=== PATIENT | male | born 1980 | race Caucasian/White ===

== ENCOUNTER 2022-06-17 14:11 | Inpatient (IN) | payer OTHER, MEDICAID, SELFPAY ==
[2022-06-17 14:12] VITALS: BP 151/98; PULSE 114; RESP 18; TEMP 36.4; O2SAT 96; BMI 31.5
--- NOTE | 2022-06-17 15:19 | EDS_ITS ---
HPI History of Present Illness Chief Complaint: Substance Abuse Detail of Chief Complaint: EtOH intoxication Informant: patient Narrative Narrative: Patient request detox from alcohol. Patient states he has been drinking since the age of 21 or before. His drink of choice is 4 Annada's. He had 2-1/2 of these today. He has been through formal detox program in the past, most recently 2 years ago. He states he started drinking again immediately upon leaving the program. He does not know of any withdrawal seizures in the past. [facility] Medical History (Updated 06/17/22 @ 15:[address] Mary Hazel MD) Asthma Home Medications aripiprazole 5 mg tablet (Abilify) 5 mg PO QHS 06/17/22 [History Last Taken Unknown] buspirone 15 mg tablet 15 mg PO BID 06/17/22 [History Last Taken Unknown] folic acid 1 mg tablet 1 mg PO DAILY 06/17/22 [History Last Taken Unknown] omeprazole 20 mg capsule,delayed release 20 mg PO DAILY 06/17/22 [History Last Taken Unknown] thiamine HCl (vitamin B1) 100 mg tablet 100 mg PO DAILY 06/17/22 [History Last Taken Unknown] trazodone 100 mg tablet 100 mg PO QHS 06/17/22 [History Last Taken Unknown] venlafaxine 75 mg capsule,extended release 24 hr 75 mg PO DAILY 06/17/22 [History Last Taken Unknown] Allergy/AdvReac Type Severity Reaction Status Date / Time azithromycin Allergy Anaphylaxis Verified 06/17/22 14:15 Social History (Updated 06/17/22 @ 15:[address] Mary Hazel MD) Smoking Status: Current every day smoker tobacco type: cigarettes alcohol intake: current alcohol intake frequency: 3 or more drinks per day ROS ROS ED Constitutional Constitutional ED: Denies chills or fever(s) Eyes Eyes: Denies change in vision or discharge from eye(s) ENT ENT ED: Denies discharge from eye(s), rhinorrhea or sore throat Cardiovascular Cardiovascular: Denies chest pain or palpitations Respiratory/Chest Respiratory/Chest: Denies cough or dyspnea Gastrointestinal Gastrointestinal: Denies abdominal pain, diarrhea, nausea or vomiting Genitourinary Genitourinary ED: Denies difficulty urinating or dysuria Musculoskeletal Musculoskeletal: Denies back pain or extremity pain Integumentary Denies Abrasions or rash Neurologic Neurologic: Denies headache(s) or weakness Psychiatric Psychiatric: Reports anxiety Endocrine Endocrinology: Denies polydipsia or polyuria Allergic/Immunologic Allergic/Immunologic ED: Denies lip swelling or urticaria EXAM Physical Exam Const Vital Signs: 06/17/22 14:12 Temperature 97.5 F L Temperature Source Temporal Pulse Rate 114 H Respiratory Rate 18 Blood Pressure 151/98 H Blood Pressure Mean 115 Pulse Ox 96 Oxygen Delivery Method Room Air Positive well nourished and well developed General Appearance ED: well developed HEENT Reports normocephalic and head/scalp atraumatic Eyes PERRL and EOMs intact bilaterally Neck supple Chest Wall inspection of chest normal and palpation of chest normal Resp normal respiratory effort and clear to auscultation bilaterally Cardio regular rhythm Rate: tachycardic GI normal to inspection, nondistended, normoactive bowel sounds Palpation: soft Extremity normal to inspection Neuro oriented x3 and no sensory deficits noted Sensorium / Orientation: alert Motor Exam: strength 5/5 throughout Psych Mood & Affect: anxious and tearful Skin no rashes or lesions noted MDM MDM MDM Narrative Medical decision making narrative: Lab work for addiction medicine obtained. Patient given a dose of Ativan. I will speak with hospitalist regarding admission. Lab Data Labs: Laboratory Results - last 24 hr 06/17/22 06/17/22 06/17/22 15:36 15:36 15:36 WBC 9.4 RBC 5.05 Hgb 17.0 H Hct 46.7 MCV 92.5 MCH 33.7 H MCHC 36.4 H RDW Std Deviation 49.4 H RDW Coeff of [place] 14.6 Plt Count 271 MPV 9.8 Immature Gran % (Auto) 0.600 Neut % (Auto) 61.0 Lymph % (Auto) 27.9 [place] % (Auto) 9.3 Eos % (Auto) 0.3 Baso % (Auto) 0.9 Absolute Neuts (auto) 5.7 Absolute Lymphs (auto) 2.62 Nucleated RBC % 0 Sodium 139 Potassium 2.9 L Chloride 96 L Carbon Dioxide 27.0 Anion Gap 16 H BUN 3 L Creatinine 0.98 Estim Creat Clear Calc 104.58 Est GFR (MDRD) Af Amer 108 Est GFR (MDRD) Non-Af 89 BUN/Creatinine Ratio 3.1 L Glucose 133 H Calcium 8.8 Total Bilirubin 1.20 H Direct Bilirubin 0.55 H AST 196 H ALT 113 H Alkaline Phosphatase 133 H Total Protein 8.1 Albumin 3.2 Globulin 4.9 H Ur Drug Screen Comment Treatment and Re-Evaluation Narrative: CBC reveals hemoglobin concentrated at 17.0. Chemistry studies significant for potassium of 2.9. This is replaced orally. Renal function is normal. LFTs are elevated including an AST of 196, ALT of 113, alk phos of 133. I do not have any prior values available for comparison. Discharge Plan Dx/Rx/DC Orders Clinical Impression: Alcoholism, Desire for detoxification Disposition Disposition: Acute Care Hospital [facility]
[2022-06-17] MEDS: LORazepam 2 MG/ML Syringe 1 MG IV (15:36)
[2022-06-17 15:47] LABS: Absolute Lymphocyte Count 2.62 X10^3/uL (0.83-4.51); Absolute Neutrophil Count 5.7 X10^3/uL (2.0-7.7); Basophil# 0.08 X10^3/uL; Basophil% 0.9 % (0-1); Eosinophil# 0.03 X10^3/uL; Eosinophils% 0.3 % (0-5); Hematocrit 46.7 % (40-54); Lymphocyte # 2.62 X10^3/ul (0.83-4.51); Lymphocyte % 27.9 % (19-41); Mean Corp Hgb Conc 36.4 g/dL (32-36); Mean Corpuscular Hgb 33.7 pg (27.0-32.0); Mean Corpuscular Volume 92.5 fL (80-94); Mean Platelet Vol. 9.8 fl (6.2-12.0); Monocyte# 0.87 X10^3/uL; Monocyte% 9.3 % (0-10); NRBC Flagged by Analyzer 0 % (0-5); Neutrophil # 5.74 X10^3/uL (2.7-7.7); Platelet Count 271 K/mm3 (150-450); RBC Distribution Width CV 14.6 % (11.6-14.6); RBC Distribution Width SD 49.4 fl (35.1-43.9); Red Blood Count 5.05 M/mm3 (4.6-6.2); White Blood Count 9.4 K/mm3 (4.4-11.0)
[2022-06-17 16:05] LABS: AST(SGOT) 196 U/L (15-37); Alanine Aminotransfer ALT/SGPT 113 U/L (16-61); Albumin, Serum 3.2 g/dL (3.2-5.0); Alkaline Phosphatase 133 U/L (45-117); Anion Gap 16 (5-15); BUN 3 mg/dL (7-18); BUN/Creat Ratio 3.1 RATIO (10-20); Bilirubin, Direct 0.55 mg/dL (0.00-0.30); Calcium,Total 8.8 mg/dL (8.5-10.1); Chloride 96 mmol/L (98-107); Creatinine, Serum 0.98 mg/dL (0.70-1.30); EST Glomerular Filtration Rate 89 mL/min (>60); Est Glom Filt Rate - Afr Amer 108 mL/min (>60); Estimated Creatinine Clearance 104.58 ml/min; Globulin 4.9 g/dL (2.2-4.2); Glucose 133 mg/dL (74-106); Potassium 2.9 mmol/L (3.5-5.1); Protein, Total 8.1 g/dL (6.4-8.2); Sodium Level 139 mmol/L (136-145)
--- NOTE | 2022-06-17 16:17 | PCM.HP.STD ---
[facility] - [facility] General Date of Service: 06/17/22 Chief Complaint: Requesting alcohol withdrawal treatment HPI Narrative BEBA ANGELA, is a 42 M who presents seeking treatment for alcohol withdrawal. Patient drinks several 4 Locos per day. Last drink was about 2 to 3 hours prior to arrival. Since his last drink, the patient has been feeling anxious and tremulous. Patient wishing to move forward in regards to getting treatment for his alcohol problem. He has not been established with any program prior to his presentation. [facility] Medical History (Updated 06/17/22 @ 16:[address] Wilberto Cardenas DO) Anxiety Asthma HTN (hypertension) Home Medications aripiprazole 5 mg tablet (Abilify) 5 mg PO QHS 06/17/22 [History Last Taken Unknown] buspirone 15 mg tablet 15 mg PO BID 06/17/22 [History Last Taken Unknown] folic acid 1 mg tablet 1 mg PO DAILY 06/17/22 [History Last Taken Unknown] omeprazole 20 mg capsule,delayed release 20 mg PO DAILY 06/17/22 [History Last Taken Unknown] thiamine HCl (vitamin B1) 100 mg tablet 100 mg PO DAILY 06/17/22 [History Last Taken Unknown] trazodone 100 mg tablet 100 mg PO QHS 06/17/22 [History Last Taken Unknown] venlafaxine 75 mg capsule,extended release 24 hr 75 mg PO DAILY 06/17/22 [History Last Taken Unknown] Allergy/AdvReac Type Severity Reaction Status Date / Time azithromycin Allergy Anaphylaxis Verified 06/17/22 14:15 Family History (Updated 06/17/22 @ 16:[address] Wilberto Cardenas DO) Other Alcohol abuse Social History (Updated 06/17/22 @ 16:[address] Wilberto Cardenas DO) Smoking Status: Current every day smoker tobacco type: cigarettes alcohol intake: current alcohol intake frequency: 3 or more drinks per day substance use type: other details: Has used a synthetic marijuana, Delta, on occassion. LENARD Gan Does have occasional epigastric abdominal pain that may be due to a hernia. All review of systems were negative except as mentioned above in the history of present illness and the other review of systems. Vital Signs Vital Signs Vital Signs: 06/17/22 14:12 Temperature 36.4 C L Temperature Source Temporal Pulse Rate 114 H Respiratory Rate 18 Blood Pressure 151/98 H Blood Pressure Mean 115 Pulse Ox 96 Oxygen Delivery Method Room Air Weight Weight: 102.512 kg Body Mass Index (BMI) 31.5 Physical Exam Const alert and no apparent distress HEENT normocephalic and head/scalp atraumatic Resp normal respiratory effort, no retractions, no use of accessory muscles and clear to auscultation bilaterally Cardio regular rate, regular rhythm, S1 normal heart sound and S2 normal heart sound GI normal to inspection, nondistended, normoactive bowel sounds, soft to palpation, non-tender and non-distended Extremity normal to inspection Psych Mood & Affect: anxious Results Lab / Micro Data Result Diagrams: 06/17/22 15:36 06/17/22 15:36 Labs: Laboratory Results - last 24 hr 06/17/22 15:36: WBC 9.4, RBC 5.05, Hgb 17.0 H, Hct 46.7, MCV 92.5, MCH 33.7 H, MCHC 36.4 H, RDW Std Deviation 49.4 H, RDW Coeff of [place] 14.6, Plt Count 271, MPV 9.8, Immature Gran % (Auto) 0.600, Neut % (Auto) 61.0, Lymph % (Auto) 27.9, [place] % (Auto) 9.3, Eos % (Auto) 0.3, Baso % (Auto) 0.9, Absolute Neuts (auto) 5.7, Absolute Lymphs (auto) 2.62, Nucleated RBC % 0 06/17/22 15:36: Sodium 139, Potassium 2.9 L, Chloride 96 L, Carbon Dioxide 27.0, Anion Gap 16 H, BUN 3 L, Creatinine 0.98, Estim Creat Clear Calc 104.58, Est GFR (MDRD) Af Amer 108, Est GFR (MDRD) Non-Af 89, BUN/Creatinine Ratio 3.1 L, Glucose 133 H, Calcium 8.8, Total Bilirubin 1.20 H, Direct Bilirubin 0.55 H, AST 196 H, ALT 113 H, Alkaline Phosphatase 133 H, Total Protein 8.1, Albumin 3.2, Globulin 4.9 H 06/17/22 15:36: Ur Drug Screen Comment Assessment & Plan Assessment/Plan (1) Alcohol withdrawal: PLAN: Patient complains of anxiety as well as tremulousness currently. Will initiate phenobarbital taper plus an additional medications to help with [place] complaints with his withdrawal. (2) Hypokalemia: PLAN: Potassium was 2.9. Patient did receive replacement in the emergency room. Follow up in the morning but also check magnesium level and replace of low. (3) Transaminitis: PLAN: Likely secondary to alcohol abuse. Follow-up and monitor. If it worsens, consider ultrasound imaging. PLAN: Plan Chronic conditions Insomnia: Continue with trazodone Anxiety: Continue with his home meds Russ Pacheco venlafaopal VTE prophylaxis: Not indicated given low risk Charges/Coding Visit Charges Inpatient E&M: 58530 Init Hosp L2
[2022-06-17 16:22] LABS: Amphetamine Urine VISTA NEGATIVE (<1000 ng/mL); Barbiturate Urine VISTA NEGATIVE (< 200 ng/mL); Benzodiazepine Urine VISTA NEGATIVE (< 200 ng/mL); Cocaine Urine VISTA NEGATIVE (< 300 ng/mL); Ecstacy Urine VISTA NEGATIVE (< 500 ng/mL); Methadone Urine VISTA NEGATIVE (< 300 ng/mL); PCP Urine VISTA NEGATIVE (< 25 ng/mL); THC Urine VISTA POSITIVE (< 50 ng/mL); Vista UDS pH Range 6
[2022-06-17] MEDS: Potassium Chloride Oral Tablet 20 MEQ 40 MEQ PO (16:43)
--- NOTE | 2022-06-17 17:51 | ED.RN ---
dinner tray ordered for patient
[2022-06-17 17:52] VITALS: BP 147/92; PULSE 92; RESP 18; TEMP 36.7; O2SAT 97
[2022-06-17 18:39] VITALS: BMI 32.1
[2022-06-17 18:48] VITALS: BP 99/58; PULSE 100; RESP 18; TEMP 37.3; O2SAT 97
[2022-06-17] MEDS: Phenobarbital 32.4 MG Tablet 64.8 MG PO ×2 (19:33→23:50)
[2022-06-17] MEDS: Ondansetron 8 MG Tablet PO (19:33)
[2022-06-17] MEDS: busPIRone 15 MG TABLET PO (19:34)
[2022-06-17] MEDS: ARIPiprazole 5 MG Tablet PO (19:35)
[2022-06-17 20:05] VITALS: BP 104/62; PULSE 105; RESP 16; TEMP 37.4; O2SAT 95
[2022-06-17] MEDS: traZODone 100 MG Tablet PO (21:04)
[2022-06-17] MEDS: hydrOXYzine PAM 25 MG Capsule 50 MG PO (23:50)
[2022-06-18] VITALS (9 sets, daily range): BP systolic 124–153; BP diastolic 76–102; PULSE 76–110; RESP 16–18; TEMP 36.5–37.4; O2SAT 94–99
[2022-06-18] MEDS: Phenobarbital 32.4 MG Tablet 64.8 MG PO ×5 (03:44→20:09)
[2022-06-18 06:24] LABS: ALB/GLOB Ratio 0.7 RATIO (0.9-2.4); AST(SGOT) 147 U/L (15-37); Alanine Aminotransfer ALT/SGPT 88 U/L (16-61); Albumin, Serum 2.8 g/dL (3.2-5.0); Alkaline Phosphatase 112 U/L (45-117); Anion Gap 11 (5-15); BUN 6 mg/dL (7-18); BUN/Creat Ratio 5.4 RATIO (10-20); Calcium,Total 8.4 mg/dL (8.5-10.1); Chloride 96 mmol/L (98-107); Creatinine, Serum 1.12 mg/dL (0.70-1.30); EST Glomerular Filtration Rate 76 mL/min (>60); Est Glom Filt Rate - Afr Amer 93 mL/min (>60); Estimated Creatinine Clearance 88.72 ml/min; Globulin 4.2 g/dL (2.2-4.2); Glucose 124 mg/dL (74-106); Magnesium 1.7 mg/dL (1.6-2.6); Potassium 2.9 mmol/L (3.5-5.1); Sodium Level 137 mmol/L (136-145)
[2022-06-18 07:41] LABS: Magnesium 1.6 mg/dL (1.6-2.6); Phosphorus 2.7 mg/dL (2.5-4.9)
[2022-06-18] MEDS: Folic Acid 1 MG Tablet PO (08:11)
[2022-06-18] MEDS: 0.9% Saline Lock 10 ML Syringe IV ×3 (08:11→12:08)
[2022-06-18] MEDS: Dicyclomine 10 MG Capsule 20 MG PO (08:11)
[2022-06-18] MEDS: Thiamine Hydrochloride 100 MG Tablet PO (08:11)
[2022-06-18] MEDS: Potassium Chloride Oral Tablet 20 MEQ 60 MEQ PO (08:17)
--- NOTE | 2022-06-18 09:12 | PCM.PN.HOSP ---
Subjective Subjective Doing well, no issues overnight CIWA score of 1 Objective Data Objective Data Vital Signs: Vital Signs Temp Pulse Resp BP Pulse Ox O2 Del Method 97.8 F 93 16 151/96 H 97 Room Air 06/18/22 07:58 06/18/22 07:58 06/18/22 07:58 06/18/22 07:58 06/18/22 07:58 06/18/22 07:58 Oxygen Delivery Method Room Air Weight: 224 lb Body Mass Index (BMI) 32.1 Intake & Output: Intake and Output for Last 24 Hours 06/17/22 06/18/22 06/19/22 03:59 03:59 03:59 Intake Total 500 / 500 800 / 800 Balance 500 / 500 800 / 800 Lab / Micro Data Result Diagrams: 06/17/22 15:36 06/18/22 04:48 Labs: Laboratory Results - last 24 hr 06/17/22 15:36: WBC 9.4, RBC 5.05, Hgb 17.0 H, Hct 46.7, MCV 92.5, MCH 33.7 H, MCHC 36.4 H, RDW Std Deviation 49.4 H, RDW Coeff of [place] 14.6, Plt Count 271, MPV 9.8, Immature Gran % (Auto) 0.600, Neut % (Auto) 61.0, Lymph % (Auto) 27.9, [place] % (Auto) 9.3, Eos % (Auto) 0.3, Baso % (Auto) 0.9, Absolute Neuts (auto) 5.7, Absolute Lymphs (auto) 2.62, Nucleated RBC % 0 06/17/22 15:36: Sodium 139, Potassium 2.9 L, Chloride 96 L, Carbon Dioxide 27.0, Anion Gap 16 H, BUN 3 L, Creatinine 0.98, Estim Creat Clear Calc 104.58, Est GFR (MDRD) Af Amer 108, Est GFR (MDRD) Non-Af 89, BUN/Creatinine Ratio 3.1 L, Glucose 133 H, Calcium 8.8, Total Bilirubin 1.20 H, Direct Bilirubin 0.55 H, AST 196 H, ALT 113 H, Alkaline Phosphatase 133 H, Total Protein 8.1, Albumin 3.2, Globulin 4.9 H 06/17/22 15:36: Ethyl Alcohol 274.0 06/17/22 15:36: Urine Opiates Screen NEGATIVE, Urine Methadone Screen NEGATIVE, Ur Barbiturates Screen NEGATIVE, Ur Phencyclidine Scrn NEGATIVE, Ur Amphetamines Screen NEGATIVE, MDMA (Ecstasy) Screen NEGATIVE, U Benzodiazepines Scrn NEGATIVE, Urine Cocaine Screen NEGATIVE, U Cannabinoids Screen POSITIVE H, Ur Drug Screen Comment 06/18/22 04:48: Sodium 137, Potassium 2.9 L, Chloride 96 L, Carbon Dioxide 30.0, Anion Gap 11, BUN 6 L, Creatinine 1.12, Estim Creat Clear Calc 88.72, Est GFR (MDRD) Af Amer 93, Est GFR (MDRD) Non-Af 76, BUN/Creatinine Ratio 5.4 L, Glucose 124 H, Calcium 8.4 L, Magnesium 1.7, Total Bilirubin 1.50 H, AST 147 H, ALT 88 H, Alkaline Phosphatase 112, Total Protein 7.0, Albumin 2.8 L, Globulin 4.2, Albumin/Globulin Ratio 0.7 L 06/18/22 04:48: Phosphorus 2.7, Magnesium 1.6 Physical Exam Narrative General: Alert, Oriented x3, Cooperative, No apparent distress, diaphoretic HEENT: Atraumatic, PERRLA, EOMI, Normocephalic Oral: Moist Mucosa Neck: Supple, No JVD Lungs: Clear to auscultation, Normal air movement, No rhonchi, No wheeze, No rales Cardiovascular: Tachycardic, Regular Rhythm, Normal S1, Normal S2, No murmurs Abdomen: Soft, Non Tender, Non-Distended, No Hepato-splenomegaly Extremities: No edema, Capillary Refill Less than 3 Seconds Skin: No rashes, No breakdown Musculoskeletal: No Tenderness to Palpation of Joints or Extremities Neurological: Cranial nerves II-XII grossly intact, Motor Exam 5/5 strength throughout, Sensory exam intact to light touch and pain Psych/Mental Status: Flat affect, anxious Assessment & Plan Assessment/Plan (1) Alcohol withdrawal: (2) Hypokalemia: (3) Transaminitis: PLAN: Plan 1. Acute alcohol withdrawal/anxiety/depression/transaminitis ? Continue with the alcohol withdrawal protocol ? We will have him meet with 180 for outpatient follow-up ? We will continue with his mental health medications ? His transaminitis is likely related to his alcohol use recommend continued outpatient follow-up DVT: Ambulation Charges/Coding Visit Charges Inpatient E&M: 77557 Subs Hosp L2
[2022-06-18] MEDS: Pantoprazole Sodium 20 MG Tablet PO (09:53)
[2022-06-18] MEDS: Venlafaxine XR 75 MG Capsule PO (09:53)
[2022-06-18] MEDS: busPIRone 15 MG TABLET PO ×2 (09:53→21:19)
[2022-06-18] MEDS: hydrOXYzine PAM 25 MG Capsule 50 MG PO (13:37)
[2022-06-18] MEDS: Loperamide 2 MG Capsule PO (13:37)
[2022-06-18] MEDS: ARIPiprazole 5 MG Tablet PO (21:19)
[2022-06-18] MEDS: traZODone 100 MG Tablet PO (21:19)
[2022-06-19 03:30] VITALS: BP 128/86; PULSE 79; RESP 18; TEMP 36.7; O2SAT 94
[2022-06-19] MEDS: 0.9% Saline Lock 10 ML Syringe IV ×2 (03:34→10:52)
[2022-06-19] MEDS: Phenobarbital 32.4 MG Tablet 64.8 MG PO ×7 (03:34→23:48)
[2022-06-19 05:40] LABS: Anion Gap 9 (5-15); BUN 11 mg/dL (7-18); BUN/Creat Ratio 9.8 RATIO (10-20); Chloride 98 mmol/L (98-107); Creatinine, Serum 1.12 mg/dL (0.70-1.30); EST Glomerular Filtration Rate 76 mL/min (>60); Est Glom Filt Rate - Afr Amer 92 mL/min (>60); Estimated Creatinine Clearance 88.72 ml/min; Glucose 144 mg/dL (74-106); Potassium 3.3 mmol/L (3.5-5.1); Sodium Level 137 mmol/L (136-145)
[2022-06-19 08:08] VITALS: BP 124/77; PULSE 91; RESP 18; TEMP 37.4; O2SAT 95
[2022-06-19] MEDS: Folic Acid 1 MG Tablet PO (08:12)
[2022-06-19] MEDS: Acetaminophen 500 MG Tablet PO ×2 (08:12→17:08)
[2022-06-19] MEDS: Thiamine Hydrochloride 100 MG Tablet PO (08:13)
--- NOTE | 2022-06-19 09:07 | PN.HOSP_ITS ---
Subjective Subjective Doing well, CIWA score of 4. Feels little bit better than yesterday Objective Data Objective Data Vital Signs: Vital Signs Temp Pulse Resp BP Pulse Ox O2 Del Method 99.3 F H 91 18 124/77 H 95 Room Air 06/19/22 08:08 06/19/22 08:08 06/19/22 08:08 06/19/22 08:08 06/19/22 08:08 06/19/22 08:08 Oxygen Delivery Method Room Air Weight: 224 lb Body Mass Index (BMI) 32.1 Intake & Output: Intake and Output for Last 24 Hours 06/18/22 06/19/22 06/20/22 03:59 03:59 03:59 Intake Total 500 / 500 2304 / 2304 Balance 500 / 500 2304 / 2304 Lab / Micro Data Result Diagrams: 06/17/22 15:36 06/19/22 04:55 Labs: Laboratory Results - last 24 hr 06/19/22 04:55: Sodium 137, Potassium 3.3 L, Chloride 98, Carbon Dioxide 30.0, Anion Gap 9, BUN 11, Creatinine 1.12, Estim Creat Clear Calc 88.72, Est GFR (M DRD) Af Amer 92, Est GFR (MDRD) Non-Af 76, BUN/Creatinine Ratio 9.8 L, Glucose 144 H, Calcium 9.0 Physical Exam Narrative General: Alert, Oriented x3, Cooperative, No apparent distress HEENT: Atraumatic, PERRLA, EOMI, Normocephalic Oral: Moist Mucosa Neck: Supple, No JVD Lungs: Clear to auscultation, Normal air movement, No rhonchi, No wheeze, No rales Cardiovascular: Regular rate, Regular Rhythm, Normal S1, Normal S2, No murmurs Abdomen: Soft, Non Tender, Non-Distended, No Hepato-splenomegaly Extremities: No edema, Capillary Refill Less than 3 Seconds Skin: No rashes, No breakdown Musculoskeletal: No Tenderness to Palpation of Joints or Extremities Neurological: Cranial nerves II-XII grossly intact, Motor Exam 5/5 strength throughout, Sensory exam intact to light touch and pain Psych/Mental Status: Flat affect, anxious Assessment & Plan Assessment/Plan (1) Alcohol withdrawal: (2) Hypokalemia: (3) Transaminitis: PLAN: Plan 1. Acute alcohol withdrawal/anxiety/depression/transaminitis ? Continue with the alcohol withdrawal protocol ? We will have him meet with 180 for outpatient follow-up ? We will continue with his mental health medications ? His transaminitis is likely related to his alcohol use recommend continued outpatient follow-up DVT: Ambulation Charges/Coding Visit Charges Inpatient E&M: 38404 Subs Hosp L2
--- NOTE | 2022-06-19 09:59 | ADDICTION ---
TW met with pt to complete ASAM, AUDIT, DUDIT, MSE, and begin D/C planning. Pt was guarded and presented with anxious affect. Pt answered all questions asked with limited information. He reports past treatment history with residential, but is interested in doing outpatient or IOP due to wanting to return home and back to work. TW provided pt with options of [facility] facilities to schedule an appointment with. Pt asked to review the places and schedule an appointment tomorrow when TW returns.
[2022-06-19] MEDS: Pantoprazole Sodium 20 MG Tablet PO (10:48)
[2022-06-19] MEDS: busPIRone 15 MG TABLET PO ×2 (10:48→21:07)
[2022-06-19] MEDS: Venlafaxine XR 75 MG Capsule PO (10:48)
[2022-06-19] MEDS: Potassium Chloride Oral Tablet 20 MEQ 40 MEQ PO (10:52)
[2022-06-19] MEDS: hydrOXYzine PAM 25 MG Capsule 50 MG PO (12:02)
[2022-06-19 13:56] VITALS: BP 138/103; PULSE 87; RESP 18; TEMP 36.8; O2SAT 97
[2022-06-19 20:46] VITALS: BP 126/84; PULSE 82; RESP 16; TEMP 36.8; O2SAT 98
[2022-06-19] MEDS: traZODone 100 MG Tablet PO (21:07)
[2022-06-19] MEDS: ARIPiprazole 5 MG Tablet PO (21:08)
[2022-06-20 03:19] VITALS: BP 124/84; PULSE 78; RESP 18; TEMP 36.6; O2SAT 95
[2022-06-20] MEDS: Acetaminophen 500 MG Tablet PO (03:22)
[2022-06-20] MEDS: Phenobarbital 32.4 MG Tablet 64.8 MG PO ×2 (03:22→09:53)
[2022-06-20 06:54] LABS: ALB/GLOB Ratio 0.6 RATIO (0.9-2.4); AST(SGOT) 114 U/L (15-37); Alanine Aminotransfer ALT/SGPT 70 U/L (16-61); Albumin, Serum 2.6 g/dL (3.2-5.0); Alkaline Phosphatase 100 U/L (45-117); Anion Gap 9 (5-15); BUN 10 mg/dL (7-18); BUN/Creat Ratio 10.8 RATIO (10-20); Calcium,Total 8.7 mg/dL (8.5-10.1); Chloride 100 mmol/L (98-107); Creatinine, Serum 0.93 mg/dL (0.70-1.30); EST Glomerular Filtration Rate 95 mL/min (>60); Est Glom Filt Rate - Afr Amer 115 mL/min (>60); Estimated Creatinine Clearance 106.84 ml/min; Globulin 4.2 g/dL (2.2-4.2); Glucose 120 mg/dL (74-106); Potassium 3.2 mmol/L (3.5-5.1); Protein, Total 6.8 g/dL (6.4-8.2); Sodium Level 137 mmol/L (136-145)
[2022-06-20 09:51] VITALS: BP 131/92; PULSE 84; RESP 16; TEMP 36.7; O2SAT 97
[2022-06-20] MEDS: Potassium Chloride Oral Tablet 20 MEQ 40 MEQ PO (09:53)
[2022-06-20] MEDS: Thiamine Hydrochloride 100 MG Tablet PO (09:53)
[2022-06-20] MEDS: Folic Acid 1 MG Tablet PO (09:53)
[2022-06-20] MEDS: Venlafaxine XR 75 MG Capsule PO (09:53)
[2022-06-20] MEDS: Pantoprazole Sodium 20 MG Tablet PO (09:53)
[2022-06-20] MEDS: busPIRone 15 MG TABLET PO (09:54)
--- NOTE | 2022-06-20 10:11 | DS.PCM_ITS ---
Providers Date of Admission: 06/17/22 Date of Discharge: 06/20/22 Primary Care Physician: Dr. Carlos Jauregui DO Reason For Visit: ALCOHOL DETOX Diagnosis Discharge Diagnosis (1) Alcohol withdrawal: Status: Acute Code(s): F10.939 - Alcohol use, unspecified with withdrawal, unspecified (2) Hypokalemia: Status: Acute Code(s): E87.6 - Hypokalemia (3) Transaminitis: Status: Acute Code(s): R74.01 - Elevation of levels of liver transaminase levels Medications at Discharge Home Medications aripiprazole 5 mg tablet (Abilify) 5 mg PO QHS 06/17/22 buspirone 15 mg tablet 15 mg PO BID 06/17/22 folic acid 1 mg tablet 1 mg PO DAILY 06/17/22 omeprazole 20 mg capsule,delayed release 20 mg PO DAILY 06/17/22 thiamine HCl (vitamin B1) 100 mg tablet 100 mg PO DAILY 06/17/22 trazodone 100 mg tablet 100 mg PO QHS 06/17/22 venlafaxine 75 mg capsule,extended release 24 hr 75 mg PO DAILY 06/17/22 Hospital Course Operations None Procedures None Summary of Care Provided Minutes Spent on Discharge: 40 Hospital Course: Patient is a 42-year-old male with past medical history of [place] was on Monday through the ED on 06/17/2022 for acute alcohol withdrawal. Patient had 4 drinks a day and said his last drink was about 2 to 3 hours prior to admission. He complained of assisted anxiety and trauma. He was admitted and managed for acute alcohol withdrawal and started on alcohol withdrawal protocol with phenobarbital. Hospital course was completed mild hypokalemia which was corrected with potassium replacement. He tolerated 3D detox process. He remained stable and was discharged home on 06/20/2022. He is to follow-up with outpatient rehab for help with his alcohol dependence. Patient seen and examined prior to discharge. He had no active complaints and had an uneventful night. Review of symptoms otherwise negative. Labs and vitals reviewed. Medication reviewed and reconciled. Physical Exam Const alert, oriented x3 and no apparent distress General Appearance: cooperative and comfortable Orientation / Consciousness: awake Exam Limitations: no limitations HEENT normocephalic, head/scalp atraumatic, hearing grossly normal bilaterally and moist oral mucous membranes Mouth: oral and palatal mucosa normal Eyes PERRL, EOMs intact bilaterally and conjunctivae normal Neck no lymphadenopathy Resp normal respiratory effort, no retractions, no use of accessory muscles and clear to auscultation bilaterally Cardio regular rate, regular rhythm, S1 normal heart sound, S2 normal heart sound and no murmurs GI normal to inspection, nondistended, normoactive bowel sounds, soft to palpation, non-tender and non-distended Extremity normal to inspection, full ROM and no clubbing, cyanosis or edema Skin no rashes or lesions noted, no wounds and skin turgor normal Neuro oriented x3, CN's II-XII intact bilaterally, moves all extremities, no focal motor deficits and no sensory deficits noted Sensorium / Orientation: awake and alert Motor Exam: strength 5/5 throughout Psych affect normal Weight / BMI Weight Weight: 224 lb Body Mass Index (BMI) 32.1 ABG / Lab / Microbiology Data Result Diagrams: 06/17/22 15:36 06/20/22 05:24 Laboratory: Laboratory Results - last 24 hr 06/20/22 05:24: Sodium 137, Potassium 3.2 L, Chloride 100, Carbon Dioxide 28.0, Anion Gap 9, BUN 10, Creatinine 0.93, Estim Creat Clear Calc 106.84, Est GFR (MDRD) Af Amer 115, Est GFR (MDRD) Non-Af 95, BUN/Creatinine Ratio 10.8, Glucose 120 H, Calcium 8.7, Total Bilirubin 1.70 H, AST 114 H, ALT 70 H, Alkaline Phosphatase 100, Total Protein 6.8, Albumin 2.6 L, Globulin 4.2, Albumin/Gl obulin Ratio 0.6 L D/C Instructions Discharge Diet: Low fat / Low cholesterol Weight Bearing Status: Weight bearing as tolerated Call your doctor if you observe: Fever of 101 or Higher, Shortness of breath, Dizziness, Swelling in the ankles, Chest pain and Increased palpitations (irregular heartbeat) Meaningful Use Info Meaningful Use Diagnoses (Choose all that apply): None applicable Discharge Plan Admission Admit Date/Time: 06/17/22 16:15 Primary Reason for Your Visit: acute alcohol withdrawal Attending Provider: Crystal Boss Primary Care Provider: Carlos Jauregui Consulting Providers: Wilberto Cardenas ; Jordan Gonzales Instructions Patient Instructions: Alcohol Withdrawal: What to Expect, Addiction: Getting Help Discharge Orders/Prescriptions Prescriptions: Continued venlafaxine 75 mg Capsule,Extended Release 24hr 75 mg PO DAILY thiamine HCl (vitamin B1) 100 mg Tablet 100 mg PO DAILY trazodone 100 mg Tablet 100 mg PO QHS omeprazole 20 mg Capsule,Delayed Release(Dr/Ec) 20 mg PO DAILY folic acid 1 mg Tablet 1 mg PO DAILY buspirone 15 mg Tablet 15 mg PO BID aripiprazole [Abilify] 5 mg Tablet 5 mg PO QHS Referrals / Follow Up: Carlos Jauregui DO [Primary Care Provider] - Within 2 Weeks Disposition Disposition (needs filled in before D/C Order can be placed): Home, Self Care Charges/Coding Visit Charges Inpatient E&M: 70887 Disch Hosp >30min
--- NOTE | 2022-06-20 10:11 | DCINST_ITS ---
Discharge Instructions Diet Discharge Diet: Low fat / Low cholesterol Activity Discharge Activity: Return to Normal Activity Weight Bearing Status: Weight bearing as tolerated Dressing / Incision Call your doctor if you observe: Fever of 101 or Higher, Shortness of breath, Dizziness, Swelling in the ankles, Chest pain and Increased palpitations (irregular heartbeat) Follow Up Care Test Results: Test results from this visit will be discussed in further detail at your follow- up appointment, if applicable. Discharge Plan Admission Admit Date/Time: 06/17/22 16:15 Primary Reason for Your Visit: acute alcohol withdrawal Attending Provider: Crystal Boss Primary Care Provider: Carlos Jauregui Consulting Providers: Wilberto Cardenas ; Jordan Gonzales Instructions Patient Instructions: Alcohol Withdrawal: What to Expect, Addiction: Getting Help Discharge Orders/Prescriptions Prescriptions: Continued venlafaxine 75 mg Capsule,Extended Release 24hr 75 mg PO DAILY thiamine HCl (vitamin B1) 100 mg Tablet 100 mg PO DAILY trazodone 100 mg Tablet 100 mg PO QHS omeprazole 20 mg Capsule,Delayed Release(Dr/Ec) 20 mg PO DAILY folic acid 1 mg Tablet 1 mg PO DAILY buspirone 15 mg Tablet 15 mg PO BID aripiprazole [Abilify] 5 mg Tablet 5 mg PO QHS Referrals / Follow Up: Carlos Jauregui DO [Primary Care Provider] - Within 2 Weeks Disposition Disposition (needs filled in before D/C Order can be placed): Home, Self Care
--- NOTE | 2022-06-20 10:21 | PHA.DC.MR ---
Pharmacy Service has performed discharge medication reconciliation for this patient. The patient's discharge medication list was reviewed for discrepancies and discrepancies were resolved. Home Medications aripiprazole 5 mg tablet (Abilify) 5 mg PO QHS 06/17/22 buspirone 15 mg tablet 15 mg PO BID 06/17/22 folic acid 1 mg tablet 1 mg PO DAILY 06/17/22 omeprazole 20 mg capsule,delayed release 20 mg PO DAILY 06/17/22 thiamine HCl (vitamin B1) 100 mg tablet 100 mg PO DAILY 06/17/22 trazodone 100 mg tablet 100 mg PO QHS 06/17/22 venlafaxine 75 mg capsule,extended release 24 hr 75 mg PO DAILY 06/17/22
== END 2022-06-20 11:45 | disposition home or self-care (01) | DRG 897 ==
LOC: ED 16:27 → MS3 16:33
PROVIDERS: Family Medicine; Emergency Provider Emergency Medicine; PCP Student in an Organized Health Care Education/Training Program; Visit Provider Student in an Organized Health Care Education/Training Program
DX: F10.239 Alcohol dependence with withdrawal, unspecified (principal); E87.6 Hypokalemia; I10 Essential (primary) hypertension; J45.909 Unspecified asthma, uncomplicated; F17.210 Nicotine dependence, cigarettes, uncomplicated; F41.9 Anxiety disorder, unspecified; R74.01 Elevation of levels of liver transaminase levels; G47.00 Insomnia, unspecified; F32.A Depression, unspecified; Z79.899 Other long term (current) drug therapy
CPT/HCPCS: 36415; 80048; 80053; 80076; 80307; 82077; 83735; 84100; 85025; 99284; A4216

== ENCOUNTER 2022-10-24 17:07 | Inpatient (IN) | payer MEDICAID, SELFPAY ==
[2022-10-24 17:08] VITALS: BP 138/113; PULSE 118; RESP 16; TEMP 36.7; O2SAT 98; BMI 31.8
--- NOTE | 2022-10-24 18:00 | EX.ED.DYSGE1 ---
HPI History of Present Illness Chief Complaint: Substance Abuse Narrative Narrative: Patient is here for detox, apparently he drinks 4 cans of locos every day he went to detox in June of this year but it did not last long. He has no symptoms, however when he detoxes he feels quite anxious at this time he does not feel anxious he drank this afternoon. [facility] Medical History (Updated 10/24/22 @ 18:[address] Dickson Jack MD) Alcoholism Anxiety Asthma Desire for detoxification HTN (hypertension) Hypokalemia Transaminitis Home Medications aripiprazole 5 mg tablet (Abilify) 5 mg PO QHS 06/17/22 [History Last Taken Unknown] buspirone 15 mg tablet 15 mg PO BID 06/17/22 [History Last Taken Unknown] folic acid 1 mg tablet 1 mg PO DAILY 06/17/22 [History Last Taken Unknown] omeprazole 20 mg capsule,delayed release 20 mg PO DAILY 06/17/22 [History Last Taken Unknown] thiamine HCl (vitamin B1) 100 mg tablet 100 mg PO DAILY 06/17/22 [History Last Taken Unknown] trazodone 100 mg tablet 100 mg PO QHS 06/17/22 [History Last Taken Unknown] venlafaxine 75 mg capsule,extended release 24 hr 75 mg PO DAILY 06/17/22 [History Last Taken Unknown] Allergy/AdvReac Type Severity Reaction Status Date / Time azithromycin Allergy Anaphylaxis Verified 10/24/22 17:12 Family History (Updated 06/17/22 @ 16:[address] Wilberto Cardenas DO) Other Alcohol abuse Social History (Updated 06/17/22 @ 16:[address] Wilberto Cardenas DO) Smoking Status: Current every day smoker tobacco type: cigarettes alcohol intake: current alcohol intake frequency: 3 or more drinks per day substance use type: other details: Has used a synthetic marijuana, Delta, on occassion. ROS ROS ED ROS Narrative Past medical history: Reviewed Medications: Reviewed Social history: Noncontributory Review of systems: All systems negative except as indicated General: No fever Eyes: No visual changes ENT: No upper airway congestion, normal voice Neck: No neck pain Cardiovascular: No chest pain Respiratory: No shortness of breath or cough Gastrointestinal: No abdominal pain, nausea vomiting or diarrhea Genitourinary: No dysuria Musculoskeletal: Denies myalgias no difficulty with ambulation Skin: No rash Neurological: No memory loss, confusion or any focal weakness, no current tremors Psych: No recent behavioral changes EXAM Physical Exam Narrative Exam Narrative: Physical exam General: Patient appears anxious. He is diaphoretic Head: Normocephalic, Atraumatic Eyes: Conjunctiva not pale ENT: Moist mucous membranes Neck: Supple, Nontender, No lymphadenopathy Cardiovascular: Regular tachycardia Respiratory: No distress, CTA bilaterally Abdomen: Soft, Nontender, Nondistended Back: Nontender, Normal Inspection. Negative for: CVA tenderness Extremities: Nontender, No edema Skin: Normal color, No rash Neurological: Alert, Normal Strength, Normal Sensation Const Vital Signs: 10/24/22 17:08 Temperature 98.1 F Temperature Source Temporal Pulse Rate 118 H Respiratory Rate 16 Blood Pressure 138/113 H Blood Pressure Mean 121 Pulse Ox 98 Oxygen Delivery Method Room Air MDM MDM MDM Narrative Medical decision making narrative: Patient is going through withdrawal, he is tachycardic and diaphoretic, phenobarbital and Ativan were given. He will be medically cleared CBC and CMP as well alcohol level and tox screen. We will admit him to our detox facility. I will talk to the hospitalist about it. He is also hypertensive, I will see with the Ativan and phenobarbital does do his blood pressure if not he will need antihypertensives. Discharge Plan Triage Chief Complaint: Substance Abuse ED Provider: Dickson Jack Dx/Rx/DC Orders Clinical Impression: Alcohol addiction, Hypertension, Tachycardia Prescriptions: No Action venlafaxine 75 mg Capsule,Extended Release 24hr 75 mg PO DAILY thiamine HCl (vitamin B1) 100 mg Tablet 100 mg PO DAILY trazodone 100 mg Tablet 100 mg PO QHS omeprazole 20 mg Capsule,Delayed Release(Dr/Ec) 20 mg PO DAILY folic acid 1 mg Tablet 1 mg PO DAILY buspirone 15 mg Tablet 15 mg PO BID aripiprazole [Abilify] 5 mg Tablet 5 mg PO QHS Primary Care Provider: Carlos Jauregui Referrals: Carlos Jauregui DO [Primary Care Provider] - Disposition Disposition: Acute Care Hospital [facility]
[2022-10-24 18:08] VITALS: BP 140/96; PULSE 112; RESP 16; O2SAT 99
--- NOTE | 2022-10-24 18:27 | CM.ED ---
Social Work SW introduced self and role to patient. Pt presents as anxious and reports he is here for alcohol detox. SW provided emotional support and encouragement. Pt requested a snack as he was not feeling well and hadn't eaten in a long time. SW checked with nurse and then brought patient a snack. SW called treatment navigator line to inform one-eighty of new RAMP patient. Charisma Cho INSTRUCTOR KNITTING, INTEGRATION DEVELOPER
[2022-10-24] MEDS: Phenobarbital 32.4 MG Tablet 97.2 MG PO (18:29)
[2022-10-24] MEDS: LORazepam 2 MG/ML Syringe 1 MG IV (18:29)
[2022-10-24 18:45] LABS: Absolute Lymphocyte Count 2.08 X10^3/uL (0.83-4.51); Basophil# 0.07 X10^3/uL; Basophil% 0.6 % (0-1); Lymphocyte # 2.08 X10^3/ul (0.83-4.51); Lymphocyte % 18.1 % (19-41); Mean Corp Hgb Conc 35.4 g/dL (32-36); Mean Corpuscular Hgb 32.1 pg (27.0-32.0); Mean Corpuscular Volume 90.6 fL (80-94); Mean Platelet Vol. 9.9 fl (6.2-12.0); Monocyte# 1.25 X10^3/uL; Monocyte% 10.9 % (0-10); NRBC Flagged by Analyzer 0 % (0-5); Neutrophil # 8.02 X10^3/uL (2.7-7.7); Neutrophil % 69.7 % (47-70); Platelet Count 231 K/mm3 (150-450); RBC Distribution Width CV 13.7 % (11.6-14.6); RBC Distribution Width SD 46.2 fl (35.1-43.9); Red Blood Count 5.74 M/mm3 (4.6-6.2); White Blood Count 11.5 K/mm3 (4.4-11.0)
[2022-10-24 18:46] LABS: Anion Gap 17 (5-15); BUN 7 mg/dL (7-18); Calcium,Total 9.4 mg/dL (8.5-10.1); Chloride 93 mmol/L (98-107); Creatinine, Serum 1.17 mg/dL (0.70-1.30); EST Glomerular Filtration Rate 73 mL/min (>60); Est Glom Filt Rate - Afr Amer 88 mL/min (>60); Estimated Creatinine Clearance 84.92 ml/min; Glucose 157 mg/dL (74-106); Potassium 2.9 mmol/L (3.5-5.1); Sodium Level 136 mmol/L (136-145)
[2022-10-24 18:52] LABS: Hemoglobin 18.4 g/dL (13.0-16.5)
[2022-10-24] MEDS: Potassium Chloride Oral Tablet 20 MEQ 40 MEQ PO ×2 (19:13→21:29)
[2022-10-24 19:17] LABS: Amphetamine Urine VISTA NEGATIVE (<1000 ng/mL); Barbiturate Urine VISTA NEGATIVE (< 200 ng/mL); Benzodiazepine Urine VISTA NEGATIVE (< 200 ng/mL); Cocaine Urine VISTA NEGATIVE (< 300 ng/mL); Ecstacy Urine VISTA POSITIVE (< 500 ng/mL); Methadone Urine VISTA NEGATIVE (< 300 ng/mL); PCP Urine VISTA NEGATIVE (< 25 ng/mL); THC Urine VISTA NEGATIVE (< 50 ng/mL); Vista UDS pH Range 4
[2022-10-24 20:16] VITALS: BP 138/99; PULSE 109; RESP 16; TEMP 36.6; O2SAT 98
--- NOTE | 2022-10-24 20:18 | HP.PCM_ITS ---
HPI - General General Date of Admission: 10/24/22 Date of Service: 10/24/22 Chief Complaint: Alcohol abuse HPI Narrative BEBA ANGELA, is a 42 M with a history of alcohol abuse who presents requesting and desirous of detoxification. Last drink was this afternoon. Drinks about 3 tall boys (13.4% alcohol) daily and possibly more. Received Ativan in the emergency department and is feeling less jittery and shaky. Denies any chest pain or shortness of breath. [facility] Medical History (Updated 10/24/22 @ 18:[address] Dickson Jack MD) Alcoholism Anxiety Asthma Desire for detoxification HTN (hypertension) Hypokalemia Transaminitis Home Medications folic acid 1 mg tablet 1 mg PO DAILY 06/17/22 [History Last Taken Unknown] thiamine HCl (vitamin B1) 100 mg tablet 100 mg PO DAILY 06/17/22 [History Last Taken Unknown] trazodone 100 mg tablet 100 mg PO QHS 06/17/22 [History Last Taken Unknown] venlafaxine 75 mg capsule,extended release 24 hr 150 mg PO DAILY 06/17/22 [History Last Taken Unknown] clonazepam 0.5 mg tablet 0.5 mg PO BID PRN PRN Anxiety 10/24/22 [History Last Taken 10/24/22] Allergy/AdvReac Type Severity Reaction Status Date / Time azithromycin Allergy Anaphylaxis Verified 10/24/22 17:12 Family History (Updated 06/17/22 @ 16:[address] Wilberto Cardenas DO) Other Alcohol abuse Social History (Updated 06/17/22 @ 16:[address] Wilberto Cardenas DO) Smoking Status: Current every day smoker tobacco type: cigarettes alcohol intake: current alcohol intake frequency: 3 or more drinks per day substance use type: other details: Has used a synthetic marijuana, Delta, on occassion. ROS ROS Narrative Does not report any chest pain or shortness of breath. All other systems reviewed and essentially negative as above in the body of the history. Vital Signs Vital Signs Vital Signs: 10/24/22 17:08 10/24/22 18:08 10/24/22 20:16 Temperature 36.7 C 36.6 C Temperature Source Temporal Temporal Pulse Rate 118 H 112 H 109 H Respiratory Rate 16 16 16 Blood Pressure 138/113 H 140/96 H 138/99 H Blood Pressure Mean 121 110 112 Pulse Ox 98 99 98 Oxygen Delivery Method Room Air Room Air Room Air Weight Weight: 100.698 kg Body Mass Index (BMI) 31.8 Physical Exam Narrative General exam. Young man, not ill looking not in any distress, HEENT. Skin of face is plethoric. Neck. Neck is supple Heart. First and second heart sounds are no murmurs. Lungs. Nonlabored breathing. Clear to auscultation Abdomen. Soft obese, moves with respiration, not tender and no organomegaly or palpable masses. CAFE LEAD. Conscious and oriented x3. Cranial 2-12 grossly intact. Hospital medicine Results Medical Records Data Attestation: I reviewed the patient's medical records Lab / Micro Data Attestation: I reviewed the patient's lab results. Result Diagrams: 10/24/22 17:57 10/24/22 17:57 Labs: Laboratory Results - last 24 hr 10/24/22 17:57: WBC 11.5 H, RBC 5.74, Hgb 18.4 H*, Hct 52.0, MCV 90.6, MCH 32.1 H, MCHC 35.4, RDW Std Deviation 46.2 H, RDW Coeff of [place] 13.7, Plt Count 231, MPV 9.9, Immature Gran % (Auto) 0.700, Neut % (Auto) 69.7, Lymph % (Auto) 18.1 L , [place] % (Auto) 10.9 H, Eos % (Auto) 0.0, Baso % (Auto) 0.6, Absolute Neuts (auto) 8.0 H, Absolute Lymphs (auto) 2.08, Nucleated RBC % 0, Diff Path Review September10/24/22 17:57: Sodium 136, Potassium 2.9 L, Chloride 93 L, Carbon Dioxide 26.0, Anion Gap 17 H, BUN 7, Creatinine 1.17, Estim Creat Clear Calc 84.92, Est GFR (MDRD) Af Amer 88, Est GFR (MDRD) Non-Af 73, BUN/Creatinine Ratio 6.0 L, Glucose 157 H, Calcium 9.4 10/24/22 17:57: Ethyl Alcohol 305.0 H* 10/24/22 18:35: Urine Opiates Screen NEGATIVE, Urine Methadone Screen NEGATIVE, Ur Barbiturates Screen NEGATIVE, Ur Phencyclidine Scrn NEGATIVE, Ur Amphetamines Screen NEGATIVE, MDMA (Ecstasy) Screen POSITIVE H, U Benzodiazepines Scrn NEGATIVE, Urine Cocaine Screen NEGATIVE, U Cannabinoids Screen NEGATIVE, Ur Drug Screen Comment ABG Data Attestation: I personally reviewed and interpreted this ABG as follows: Assessment & Plan Assessment/Plan (1) Alcohol addiction: PLAN: Plan 1. Alcohol abuse with intoxication and early alcohol withdrawal. We will keep patient on telemetry and start on CIWA protocol with lorazepam. We will schedule Librium 50 mg every 6 hours given high risk for withdrawal. Clonidine 0.1 mg twice a day to dampen sympathetic hyperactivity. Rehydrate with IV fluids/crystalloids. Other supportive care. Thiamine. Consult social studies department chair to assist patient with connecting with outpatient resources to help with substance abuse. 2. Hypokalemia. Secondary to alcohol abuse. We will replete both intravenously and orally. Check for other potential electrolyte derangements and abnormalities such as hypomagnesemia and hypophosphatemia. Correct as necessary and indicated. 3. Alcoholic liver disease. Abnormal liver function tests noted on blood work. Should improve with abstinence. Can be monitored as an outpatient. Charges/Coding Visit Charges Inpatient E&M: 60874 Init Hosp L3
[2022-10-24 20:44] VITALS: BP 150/99; PULSE 105; RESP 18; TEMP 36.8; O2SAT 95
[2022-10-24 20:49] VITALS: BMI 31.5
[2022-10-24] MEDS: Ondansetron 4 MG/2 ML Vial IV (21:26)
[2022-10-24] MEDS: 0.9% Saline Lock 10 ML Syringe IV (21:28)
[2022-10-24] MEDS: KCl 20MEQ in D5NS 20 MEQ/1,000 ML IV.SOLN. 150 MEQ IV (21:29)
[2022-10-24] MEDS: Thiamine Hydrochloride 100 MG Tablet 200 MG PO (21:29)
[2022-10-24] MEDS: cloNIDine HCl 0.1 MG Tablet PO (21:29)
[2022-10-24] MEDS: traZODone 100 MG Tablet PO (21:29)
[2022-10-24] MEDS: LORazepam 1 MG Tablet PO (21:37)
[2022-10-25 00:39] VITALS: BP 121/88; PULSE 111; RESP 18; TEMP 36.6; O2SAT 94
[2022-10-25] MEDS: chlordiazePOXIDE 25 MG Capsule 50 MG PO ×4 (00:43→18:16)
[2022-10-25] MEDS: LORazepam 1 MG Tablet PO ×6 (00:43→21:18)
[2022-10-25 04:31] VITALS: BP 139/92; PULSE 100; RESP 18; TEMP 37.1; O2SAT 96
[2022-10-25] MEDS: KCl 20MEQ in D5NS 20 MEQ/1,000 ML IV.SOLN. 150 MEQ IV ×3 (04:36→16:30)
[2022-10-25] MEDS: Thiamine Hydrochloride 100 MG Tablet 200 MG PO ×3 (06:17→21:18)
[2022-10-25] MEDS: Potassium Chloride Oral Tablet 20 MEQ 40 MEQ PO ×2 (06:17→13:05)
[2022-10-25 06:42] LABS: Absolute Lymphocyte Count 1.65 X10^3/uL (0.83-4.51); Absolute Neutrophil Count 6.8 X10^3/uL (2.0-7.7); Basophil# 0.07 X10^3/uL; Basophil% 0.7 % (0-1); Eosinophil# 0.04 X10^3/uL; Eosinophils% 0.4 % (0-5); Hematocrit 45.1 % (40-54); Hemoglobin 15.9 g/dL (13.0-16.5); Lymphocyte # 1.65 X10^3/ul (0.83-4.51); Lymphocyte % 17.3 % (19-41); Mean Corp Hgb Conc 35.3 g/dL (32-36); Mean Corpuscular Hgb 32.9 pg (27.0-32.0); Mean Corpuscular Volume 93.2 fL (80-94); Mean Platelet Vol. 9.8 fl (6.2-12.0); Monocyte# 0.88 X10^3/uL; Monocyte% 9.2 % (0-10); NRBC Flagged by Analyzer 0 % (0-5); Neutrophil % 71.6 % (47-70); Platelet Count 178 K/mm3 (150-450); RBC Distribution Width CV 14.1 % (11.6-14.6); RBC Distribution Width SD 48.5 fl (35.1-43.9); Red Blood Count 4.84 M/mm3 (4.6-6.2); White Blood Count 9.5 K/mm3 (4.4-11.0)
[2022-10-25 07:18] LABS: ALB/GLOB Ratio 0.8 RATIO (0.9-2.4); AST(SGOT) 104 U/L (15-37); Alanine Aminotransfer ALT/SGPT 81 U/L (16-61); Alkaline Phosphatase 91 U/L (45-117); Anion Gap 6 (5-15); BUN 13 mg/dL (7-18); BUN/Creat Ratio 12.3 RATIO (10-20); Calcium,Total 9.1 mg/dL (8.5-10.1); Chloride 98 mmol/L (98-107); Creatinine, Serum 1.06 mg/dL (0.70-1.30); EST Glomerular Filtration Rate 81 mL/min (>60); Est Glom Filt Rate - Afr Amer 98 mL/min (>60); Estimated Creatinine Clearance 93.74 ml/min; Globulin 3.9 g/dL (2.2-4.2); Glucose 153 mg/dL (74-106); Magnesium 1.6 mg/dL (1.6-2.6); Phosphorus 3.4 mg/dL (2.5-4.9); Protein, Total 6.9 g/dL (6.4-8.2); Sodium Level 134 mmol/L (136-145)
--- NOTE | 2022-10-25 07:21 | PCM.PN.HOSP ---
Reason for Visit Reason for Visit: Diagnoses Alcohol dependence, uncomplicated (10/24/22) Subjective Subjective Patient is a 42-year-old gentleman with history of chronic alcohol dependence admitted with acute alcohol withdrawal Objective Data Objective Data Vital Signs: Vital Signs Temp Pulse Resp BP Pulse Ox O2 Del Method 98.7 F 100 18 139/92 H 96 Room Air 10/25/22 04:31 10/25/22 04:31 10/25/22 04:31 10/25/22 04:31 10/25/22 04:31 10/25/22 04:31 Oxygen Delivery Method Room Air Weight: 100 kg Body Mass Index (BMI) 31.5 Intake & Output: Intake and Output for Last 24 Hours 10/23/22 10/24/22 10/25/22 23:59 23:59 23:59 Intake Total 0 / 0 Balance 0 / 0 Lab / Micro Data Result Diagrams: 10/25/22 06:19 10/25/22 06:19 Labs: Laboratory Results - last 24 hr 10/24/22 17:57: WBC 11.5 H, RBC 5.74, Hgb 18.4 H*, Hct 52.0, MCV 90.6, MCH 32.1 H, MCHC 35.4, RDW Std Deviation 46.2 H, RDW Coeff of [place] 13.7, Plt Count 231, MPV 9.9, Immature Gran % (Auto) 0.700, Neut % (Auto) 69.7, Lymph % (Auto) 18.1 L, [place] % (Auto) 10.9 H, Eos % (Auto) 0.0, Baso % (Auto) 0.6, Absolute Neuts (auto) 8.0 H, Absolute Lymphs (auto) 2.08, Nucleated RBC % 0, Diff Path Review September10/24/22 17:57: Sodium 136, Potassium 2.9 L, Chloride 93 L, Carbon Dioxide 26.0, Anion Gap 17 H, BUN 7, Creatinine 1.17, Estim Creat Clear Calc 84.92, Est GFR (MDRD) Af Amer 88, Est GFR (MDRD) Non-Af 73, BUN/Creatinine Ratio 6.0 L, Glucose 157 H, Calcium 9.4 10/24/22 17:57: Ethyl Alcohol 305.0 H* 10/24/22 18:35: Urine Opiates Screen NEGATIVE, Urine Methadone Screen NEGATIVE, Ur Barbiturates Screen NEGATIVE, Ur Phencyclidine Scrn NEGATIVE, Ur Amphetamines Screen NEGATIVE, MDMA (Ecstasy) Screen POSITIVE H, U Benzodiazepines Scrn NEGATIVE, Urine Cocaine Screen NEGATIVE, U Cannabinoids Screen NEGATIVE, Ur Drug Screen Comment 10/25/22 06:19: WBC 9.5, RBC 4.84, Hgb 15.9, Hct 45.1, MCV 93.2, MCH 32.9 H, MCHC 35.3, RDW Std Deviation 48.5 H, RDW Coeff of [place] 14.1, Plt Count 178, MPV 9.8, Immature Gran % (Auto) 0.800, Neut % (Auto) 71.6 H, Lymph % (Auto) 17.3 L, [place] % (Auto) 9.2, Eos % (Auto) 0.4, Baso % (Auto) 0.7, Absolute Neuts (auto) 6.8, Absolute Lymphs (auto) 1.65, Nucleated RBC % 0 10/25/22 06:19: Sodium 134 L, Potassium 4.0, Chloride 98, Carbon Dioxide 30.0, Anion Gap 6, BUN 13, Creatinine 1.06, Estim Creat Clear Calc 93.74, Est GFR (MDRD) Af Amer 98, Est GFR (MDRD) Non-Af 81, BUN/Creatinine Ratio 12.3, Glucose 153 H, Calcium 9.1, Phosphorus 3.4, Magnesium 1.6, Total Bilirubin 2.00 H, AST 104 H, ALT 81 H, Alkaline Phosphatase 91, Total Protein 6.9, Albumin 3.0 L, Globulin 3.9, Albumin/Globulin Ratio 0.8 L Physical Exam Narrative GENERAL: cooperative HEENT: Atraumatic; normocephalic EYES; Anicteric, Normal Conjunctiva NECK; supple, normal thyroid, RESPIRATORY: Diminished to auscultation CARDIOVASCULAR: Regular S1 S2, GI: soft, normoactive bowel sounds, : No Renal angle tenderness; EXTREMITIES: No edema, no clubbing, MUSCULOSKELETAL: no muscle wasting NEURO: Awake; no lateralizing signs. SKIN: No Rash PSYCH; Flat affect Assessment & Plan Assessment/Plan (1) Alcohol addiction: PLAN: Plan Patient is a 42-year-old gentleman with history of chronic alcohol dependence admitted with acute alcohol withdrawal 1. Acute alcohol withdrawal patient has been admitted to regular nursing floor being managed with alcohol withdrawal protocol using lorazepam 2. Hypokalemia -Corrected per protocol 3. Mild transaminitis ? Secondary to chronic alcohol use we will continue with monitoring 4. Class I obesity with BMI of 31.6 Weight loss advised 5.Tobacco dependence - Counseled on cessation, offered nicotine patch for tobacco cravings 6. DVT prophylaxis Low risk, encouraging ambulation Time spent in the patient's overall evaluation,decision-making process, review of diagnostic data, adjustment of management, discussion with other providers, nursing nursing and ancillary staff involved in patient's care documentation, 40 Minutes Charges/Coding Visit Charges Inpatient E&M: 08876 Subs Hosp L2
[2022-10-25] MEDS: Enoxaparin 40 MG/0.4 ML Syringe SC (07:51)
[2022-10-25] MEDS: Folic Acid 1 MG Tablet PO (07:52)
[2022-10-25 08:00] VITALS: BP 152/106; PULSE 88; RESP 18; TEMP 36.9; O2SAT 95
[2022-10-25 10:00] VITALS: BP 164/99
[2022-10-25] MEDS: Venlafaxine XR 75 MG Capsule 150 MG PO (10:15)
[2022-10-25] MEDS: cloNIDine HCl 0.1 MG Tablet PO ×2 (10:15→21:18)
[2022-10-25] MEDS: amLODIPine 10 MG Tablet PO (10:46)
[2022-10-25 14:50] VITALS: BP 148/97; PULSE 87; RESP 18; TEMP 36.5; O2SAT 96
[2022-10-25 15:05] LABS: Pathologist Review Reviewed
[2022-10-25 21:08] VITALS: BP 132/79; PULSE 85; RESP 18; TEMP 36.6; O2SAT 100
[2022-10-25] MEDS: Dicyclomine 10 MG Capsule 20 MG PO (21:18)
[2022-10-25] MEDS: Ondansetron 8 MG Tablet PO (21:18)
[2022-10-25] MEDS: traZODone 100 MG Tablet PO (21:18)
[2022-10-26] MEDS: LORazepam 1 MG Tablet PO ×6 (00:33→19:59)
[2022-10-26] MEDS: chlordiazePOXIDE 25 MG Capsule 50 MG PO ×4 (00:34→17:14)
[2022-10-26 05:11] VITALS: BP 122/86; PULSE 85; RESP 18; TEMP 36.5; O2SAT 95
[2022-10-26] MEDS: Thiamine Hydrochloride 100 MG Tablet 200 MG PO ×3 (05:17→19:59)
--- NOTE | 2022-10-26 07:31 | PCM.PN.HOSP ---
Reason for Visit Reason for Visit: Diagnoses Alcohol dependence, uncomplicated (10/24/22) Subjective Subjective Patient was started on scheduled amlodipine in view of persistently elevated blood pressure Objective Data Objective Data Vital Signs: Vital Signs Temp Pulse Resp BP Pulse Ox O2 Del Method 97.7 F L 85 18 122/86 H 95 Room Air 10/26/22 05:11 10/26/22 05:11 10/26/22 05:11 10/26/22 05:11 10/26/22 05:11 10/26/22 05:11 Oxygen Delivery Method Room Air Weight: 100 kg Body Mass Index (BMI) 31.5 Intake & Output: Intake and Output for Last 24 Hours 10/24/22 10/25/22 10/26/22 23:59 23:59 23:59 Intake Total 3985.0 / 3985.0 1200 / 1200 Balance 3985.0 / 3985.0 1200 / 1200 Lab / Micro Data Result Diagrams: 10/25/22 06:19 10/25/22 06:19 Labs: Laboratory Results - last 24 hr 10/24/22 17:57: Diff Path Review Reviewed Physical Exam Narrative GENERAL: cooperative HEENT: Atraumatic; normocephalic EYES; Anicteric, Normal Conjunctiva NECK; supple, normal thyroid, RESPIRATORY: Diminished to auscultation CARDIOVASCULAR: Regular S1 S2, GI: soft, normoactive bowel sounds, : No Renal angle tenderness; EXTREMITIES: No edema, no clubbing, MUSCULOSKELETAL: no muscle wasting NEURO: Awake; no lateralizing signs. SKIN: No Rash PSYCH; Flat affect Assessment & Plan Assessment/Plan (1) Alcohol addiction: PLAN: Plan Patient is a 42-year-old gentleman with history of chronic alcohol dependence admitted with acute alcohol withdrawal 1. Acute alcohol withdrawal patient has been admitted to regular nursing floor being managed with alcohol withdrawal protocol using lorazepam 2. Hypokalemia -Corrected per protocol 3. Mild transaminitis ? Secondary to chronic alcohol use we will continue with monitoring 4. Class I obesity with BMI of 31.6 Weight loss advised 5.Tobacco dependence - Counseled on cessation, offered nicotine patch for tobacco cravings 6. DVT prophylaxis Low risk, encouraging ambulation 7. New onset hypertension ? Patient started on amlodipine Time spent in the patient's overall evaluation,decision-making process, review of diagnostic data, adjustment of management, discussion with other providers, nursing nursing and ancillary staff involved in patient's care documentation, 35 Minutes Charges/Coding Visit Charges Inpatient E&M: 88822 Subs Hosp L2
[2022-10-26] MEDS: Folic Acid 1 MG Tablet PO (08:30)
[2022-10-26] MEDS: Acetaminophen 500 MG Tablet PO (08:30)
[2022-10-26] MEDS: Ondansetron 8 MG Tablet PO (08:31)
[2022-10-26 09:03] VITALS: BP 124/84; PULSE 98; RESP 14; TEMP 36.6; O2SAT 96
[2022-10-26] MEDS: Enoxaparin 40 MG/0.4 ML Syringe SC (09:50)
[2022-10-26] MEDS: cloNIDine HCl 0.1 MG Tablet PO ×2 (09:50→19:59)
[2022-10-26] MEDS: amLODIPine 10 MG Tablet PO (09:50)
[2022-10-26] MEDS: Venlafaxine XR 75 MG Capsule 150 MG PO (09:50)
[2022-10-26 10:00] VITALS: BP 127/83; PULSE 91; RESP 16; TEMP 36.7; O2SAT 97
[2022-10-26 14:29] VITALS: BP 112/72; PULSE 92; RESP 18; TEMP 36.6; O2SAT 97
[2022-10-26] MEDS: Pantoprazole Sodium 40 MG Tablet PO (17:31)
[2022-10-26 18:00] VITALS: BP 122/75; PULSE 88; RESP 14; TEMP 36.9; O2SAT 100
[2022-10-26] MEDS: traZODone 100 MG Tablet PO (19:59)
[2022-10-26] MEDS: MELATONIN 3 MG TABLET PO (19:59)
[2022-10-26] MEDS: hydrOXYzine PAM 25 MG Capsule 50 MG PO (20:00)
[2022-10-26 20:02] VITALS: BP 132/78; PULSE 87; RESP 17; TEMP 36.7; O2SAT 97
[2022-10-27] MEDS: LORazepam 1 MG Tablet PO ×3 (00:01→10:04)
[2022-10-27] MEDS: chlordiazePOXIDE 25 MG Capsule 50 MG PO ×2 (00:01→05:14)
--- NOTE | 2022-10-27 00:58 | NURSING ---
This rn did the 1999 assessment and not merrill
[2022-10-27 03:30] VITALS: BP 122/67; PULSE 81; RESP 17; TEMP 36.6; O2SAT 95
[2022-10-27] MEDS: Thiamine Hydrochloride 100 MG Tablet 200 MG PO (05:16)
--- NOTE | 2022-10-27 08:44 | PCM.PN.HOSP ---
Reason for Visit Reason for Visit: Diagnoses Alcohol dependence, uncomplicated (10/24/22) Subjective Subjective Patient seen had a relatively uneventful night. Plan is for patient to be assessed for possible discharge Objective Data Objective Data Vital Signs: Vital Signs Temp Pulse Resp BP Pulse Ox O2 Del Method 97.9 F 81 17 122/67 H 95 Room Air 10/27/22 03:30 10/27/22 03:30 10/27/22 03:30 10/27/22 03:30 10/27/22 03:30 10/27/22 03:30 Oxygen Delivery Method Room Air Weight: 100 kg Body Mass Index (BMI) 31.5 Intake & Output: Intake and Output for Last 24 Hours 10/25/22 10/26/22 10/27/22 23:59 23:59 23:59 Intake Total 3985.0 / 3985.0 1440 / 1680 560 / 560 Balance 3985.0 / 3985.0 1440 / 1680 560 / 560 Lab / Micro Data Result Diagrams: 10/25/22 06:19 10/25/22 06:19 Physical Exam Narrative GENERAL: cooperative HEENT: Atraumatic; normocephalic EYES; Anicteric, Normal Conjunctiva NECK; supple, normal thyroid, RESPIRATORY: Diminished to auscultation CARDIOVASCULAR: Regular S1 S2, GI: soft, normoactive bowel sounds, : No Renal angle tenderness; EXTREMITIES: No edema, no clubbing, MUSCULOSKELETAL: no muscle wasting NEURO: Awake; no lateralizing signs. SKIN: No Rash PSYCH; Flat affect Assessment & Plan Assessment/Plan (1) Alcohol addiction: PLAN: Plan Patient is a 42-year-old gentleman with history of chronic alcohol dependence admitted with acute alcohol withdrawal 1. Acute alcohol withdrawal patient has been admitted to regular nursing floor being managed with alcohol withdrawal protocol using lorazepam ? 10/27/2022 plan is for patient to be assessed for possible 2. Hypokalemia -Corrected per protocol 3. Mild transaminitis ? Secondary to chronic alcohol use we will continue with monitoring 4. Class I obesity with BMI of 31.6 Weight loss advised 5.Tobacco dependence - Counseled on cessation, offered nicotine patch for tobacco cravings 6. DVT prophylaxis Low risk, encouraging ambulation 7. New onset hypertension ? Patient started on amlodipine Time spent in the patient's overall evaluation,decision-making process, review of diagnostic data, adjustment of management, discussion with other providers, nursing nursing and ancillary staff involved in patient's care documentation, 35 Minutes Charges/Coding Visit Charges Inpatient E&M: 12936 Subs Hosp L2
--- NOTE | 2022-10-27 08:57 | PCM.DC.SUM ---
Providers Date of Admission: 10/24/22 Date of Discharge: 10/27/22 Primary Care Physician: Savannah Primary Care Phys Reason For Visit: ALCOHOL WITHDRAWAL Diagnosis Discharge Diagnosis (1) Alcohol addiction: Status: Acute Code(s): F10.20 - Alcohol dependence, uncomplicated Plan Patient is a 42-year-old gentleman with history of chronic alcohol dependence admitted with acute alcohol withdrawal 1. Acute alcohol withdrawal patient has been admitted to regular nursing floor being managed with alcohol withdrawal protocol using lorazepam ? 10/27/2022 plan is for patient to be assessed for possible ? Patient to follow-up with [facility] counseling services on discharge 2. Hypokalemia -Corrected per protocol 3. Mild transaminitis ? Secondary to chronic alcohol use we will continue with monitoring 4. Class I obesity with BMI of 31.6 Weight loss advised 5.Tobacco dependence - Counseled on cessation, offered nicotine patch for tobacco cravings 6. DVT prophylaxis Low risk, encouraging ambulation 7. New onset hypertension ? Patient started on amlodipine Time spent in the patient's overall evaluation,decision-making process, review of diagnostic data, adjustment of management, discussion with other providers, nursing nursing and ancillary staff involved in patient's care documentation, 35 Minutes Medications at Discharge Home Medications folic acid 1 mg tablet 1 mg PO DAILY 06/17/22 thiamine HCl (vitamin B1) 100 mg tablet 100 mg PO DAILY 06/17/22 trazodone 100 mg tablet 100 mg PO QHS 06/17/22 venlafaxine 75 mg capsule,extended release 24 hr 150 mg PO DAILY 06/17/22 clonazepam 0.5 mg tablet 0.5 mg PO BID PRN PRN Anxiety 10/24/22 amlodipine 10 mg tablet 10 mg PO DAILY #90 tabs 10/27/22 pantoprazole 40 mg tablet,delayed release 40 mg PO DAILY #30 tabs 10/27/22 Hospital Course Summary of Care Provided Minutes Spent on Discharge: 35 Weight / BMI Weight Weight: 100 kg Body Mass Index (BMI) 31.5 ABG / Lab / Microbiology Data Result Diagrams: 10/25/22 06:19 10/25/22 06:19 D/C Instructions Discharge Diet: No restrictions Discharge Activity: Return to Normal Activity Call your doctor if you observe: Fever of 101 or Higher, Shortness of breath, Fainting spells and Chest pain Meaningful Use Info Meaningful Use Diagnoses (Choose all that apply): None applicable Discharge Plan Admission Admit Date/Time: 10/24/22 20:03 Attending Provider: Roger Maki Primary Care Provider: Care Physician,No Primary Consulting Providers: Fred Orellana Discharge Orders/Prescriptions Prescriptions: New amlodipine 10 mg Tablet 10 mg PO DAILY Qty: 90 0RF pantoprazole 40 mg Tablet,Delayed Release (Dr/Ec) 40 mg PO DAILY Qty: 30 0RF Continued venlafaxine 75 mg Capsule,Extended Release 24hr 150 mg PO DAILY thiamine HCl (vitamin B1) 100 mg Tablet 100 mg PO DAILY trazodone 100 mg Tablet 100 mg PO QHS folic acid 1 mg Tablet 1 mg PO DAILY clonazepam 0.5 mg tablet 0.5 mg PO BID PRN PRN (Reason: Anxiety) Label Comments: TAKE 1 TABLET BY MOUTH TWICE A DAY NEEDED Referrals / Follow Up: Carlos Jauregui DO [Non-Staff] - Within 1 Week Care Physician,No Primary [Primary Care Provider] - Disposition Disposition (needs filled in before D/C Order can be placed): Home, Self Care Charges/Coding Visit Charges Inpatient E&M: 02394 Disch Hosp >30min
[2022-10-27 08:59] VITALS: BP 121/82; PULSE 95; RESP 18; TEMP 36.6; O2SAT 96
--- NOTE | 2022-10-27 09:51 | ADDICTION ---
This field underwriter met with PT to conduct ASAM, MSE, AUDIT, DUDIT assessments and to plan for d/c. PT A+Ox4 and participated actively. All assessments completed and placed in PT's chart. PT plans to f/u with AA for follow-up sober supports. PT did not indicate a need for transportation post d/c from [facility].
[2022-10-27] MEDS: cloNIDine HCl 0.1 MG Tablet PO (09:59)
[2022-10-27] MEDS: Folic Acid 1 MG Tablet PO (09:59)
[2022-10-27] MEDS: Venlafaxine XR 75 MG Capsule 150 MG PO (09:59)
[2022-10-27] MEDS: amLODIPine 10 MG Tablet PO (10:00)
[2022-10-27] MEDS: Pantoprazole Sodium 40 MG Tablet PO (10:01)
== END 2022-10-27 10:36 | disposition home or self-care (01) | DRG 897 ==
LOC: ED 19:23 → MS3 21:08
PROVIDERS: Admitting Provider Internal Medicine; Emergency Provider Emergency Medicine; Visit Provider Internal Medicine
DX: F10.239 Alcohol dependence with withdrawal, unspecified (principal); E66.9 Obesity, unspecified; K70.9 Alcoholic liver disease, unspecified; E87.6 Hypokalemia; I10 Essential (primary) hypertension; F17.210 Nicotine dependence, cigarettes, uncomplicated; Z68.31 Body mass index [BMI] 31.0-31.9, adult; Z79.899 Other long term (current) drug therapy
CPT/HCPCS: 36415; 80048; 80053; 80307; 82077; 83735; 84100; 85025; 99284; 99406; A4216; J2405

== ENCOUNTER 2022-11-14 12:48 | Inpatient (IN) | payer MEDICAID, SELFPAY ==
[2022-11-14 12:49] VITALS: BP 147/97; PULSE 110; RESP 16; TEMP 36; O2SAT 96; BMI 32.3
--- NOTE | 2022-11-14 13:52 | EDS_ITS ---
HPI History of Present Illness Chief Complaint: Substance Abuse Detail of Chief Complaint: Alcohol abuse requesting detox. Informant: patient Onset/Context/Timing Onset: - (Alcohol abuse history for years.) Timing: Continuous Current Severity: Moderate Maximum Severity: Moderate Narrative Narrative: 42-year-old male history of alcohol abuse for years was detoxed once earlier this year. Also history of hypertension. States he drinks at least 4-5 tall boy, local beers a day and occasionally hard alcohol. Denies recent illness. He is requesting detox. Denies any hematemesis or melena. Prior similar symptoms: Yes Recent Illness/Hospitalization: Yes [facility] Medical History Alcoholism Anxiety Asthma Desire for detoxification HTN (hypertension) Hypokalemia Transaminitis Home Medications folic acid 1 mg tablet 1 mg PO DAILY 06/17/22 [History Last Taken Unknown] thiamine HCl (vitamin B1) 100 mg tablet 100 mg PO DAILY 06/17/22 [History Last Taken Unknown] trazodone 100 mg tablet 100 mg PO QHS 06/17/22 [History Last Taken Unknown] venlafaxine 75 mg capsule,extended release 24 hr 150 mg PO DAILY 06/17/22 [History Last Taken Unknown] clonazepam 0.5 mg tablet 0.5 mg PO BID PRN PRN Anxiety 10/24/22 [History Last Taken 10/24/22] amlodipine 10 mg tablet 10 mg PO DAILY #90 tabs 10/27/22 [Rx Last Taken Unknown] pantoprazole 40 mg tablet,delayed release 40 mg PO DAILY #30 tabs 10/27/22 [Rx Last Taken Unknown] Allergy/AdvReac Type Severity Reaction Status Date / Time azithromycin Allergy Anaphylaxis Verified 10/24/22 17:12 Family History Other Alcohol abuse Social History Smoking Status: Current every day smoker tobacco type: cigarettes and e- cigarettes alcohol intake: current alcohol intake frequency: 3 or more drinks per day substance use type: other details: Has used a synthetic marijuana, [place], on occassion. ROS ROS ED ROS Narrative Denies recent illness. Review of Systems ROS Unobtainable: Denies due to encephalopathy Constitutional Constitutional ED: Denies chills or fever(s) Eyes Eyes: Denies blurry vision ENT ENT ED: Denies ear pain Respiratory/Chest Respiratory/Chest: Denies cough Gastrointestinal Gastrointestinal: Denies abdominal pain Genitourinary Genitourinary ED: Denies dysuria Musculoskeletal Musculoskeletal: Denies arthralgias Integumentary Denies abscess Neurologic Neurologic: Denies headache(s) Psychiatric Psychiatric: Denies anxiety Endocrine Endocrinology: Denies cold intolerance Hematologic/Lymphatic Hematologic/Lymphatic: Denies easy bleeding Allergic/Immunologic Allergic/Immunologic ED: Denies mouth swelling EXAM Physical Exam Narrative Exam Narrative: 42-year-old male vital signs stable afebrile. No distress. No one else present in room. H EENT exam unremarkable. Smell of alcohol. Neck nontender no lymphadenopathy. Lungs clear to auscultation bilaterally. Heart tachycardic rate 1 5 no murmur. Abdomen soft, nontender, nondistended, normal bowel sounds without peritoneal signs. Moving all 4 extremities. Back nontender. Neurologically he is awake and alert with no focal motor deficits. Const Vital Signs: 11/14/22 12:49 Temperature 96.8 F L Temperature Source Temporal Pulse Rate 110 H Respiratory Rate 16 Blood Pressure 147/97 H Blood Pressure Mean 113 Pulse Ox 96 Oxygen Delivery Method Room Air Positive well nourished and well developed; Negative for cachectic, contractures or unkempt General Appearance ED: well developed and NAD; Negative for unkempt, cachectic, contractures or pallor Nutritional Appearance: Negative for cachectic HEENT Reports moist mucous membranes; Denies dry mucous membranes atraumatic; Negative for trauma or tenderness Mouth ED: No dry mucous membranes Mouth: No dry mucous membranes Eyes PERRL and EOMs intact bilaterally General Eye ED: Negative for pale conjunctiva or scleral icterus Neck no lymphadenopathy, supple and no JVD Thyroid: Negative for tender Lymph Lymphatic: no lymphadenopathy noted and lymphadenopathy; Negative for other Chest Wall inspection of chest normal and palpation of chest normal Chest: Negative for other Resp normal respiratory effort and clear to auscultation bilaterally Effort and Inspection: Negative for retractions Auscultation: Negative for rales, rhonchi or wheezes Cardio regular rhythm, S1 normal heart sound, S2 normal heart sound and no murmurs; Negative for regular rate Rate: tachycardic; Negative for bradycardia Rhythm: Negative for abnormal rhythm Bruits: Negative for other GI soft to palpation, non-tender, non-distended and no masses Inspection: Negative for abdominal distention Palpation: Negative for tender, guarding or rigid Back/Spine no CVA tenderness General Back: Negative for CVA tenderness Cervical Spine: Negative for cervical spine tenderness Thoracic Spine / Upper Back: Negative for thoracic spinal tenderness Lumbar Spine / Lower Back: Negative for lumbar spinal tenderness Coccyx: Negative for swelling Extremity General Extremety ED: Negative for edema or tenderness General Extremity: Negative for edema Neuro oriented x3 and CN's II-XII intact bilaterally Sensorium / Orientation: alert, oriented to person, oriented to place and o riented to time; Negative for confused, lethargic or stuporous Speech: speech normal Motor Exam: strength 5/5 throughout Psych mental status grossly normal and thought process normal Appearance: Negative for unkempt Attitude: No belligerent, No agitated and No aggressive Mood & Affect: Negative for depressed, anxious or tearful Skin General Skin Exam: Negative for jaundice or pallor Lesions: no lesions Rashes: No no rashes Trauma: Negative for abrasion or laceration MDM MDM MDM Narrative Medical decision making narrative: 42-year-old male history of alcohol abuse requesting detox. Exam benign. Hospitalist on page for admission. Discharge Plan Triage Chief Complaint: Substance Abuse ED Provider: Cristopher Yeager Dx/Rx/DC Orders Clinical Impression: Admitted to alcohol detoxification center, Alcohol addiction Prescriptions: No Action venlafaxine 75 mg Capsule,Extended Release 24hr 150 mg PO DAILY thiamine HCl (vitamin B1) 100 mg Tablet 100 mg PO DAILY trazodone 100 mg Tablet 100 mg PO QHS folic acid 1 mg Tablet 1 mg PO DAILY clonazepam 0.5 mg tablet 0.5 mg PO BID PRN PRN (Reason: Anxiety) Patient Comments: TAKE 1 TABLET BY MOUTH TWICE A DAY NEEDED amlodipine 10 mg Tablet 10 mg PO DAILY Qty: 90 0RF pantoprazole 40 mg Tablet,Delayed Release (Dr/Ec) 40 mg PO DAILY Qty: 30 0RF Primary Care Provider: Care Physician,No Primary Referrals: Care Physician,No Primary [Primary Care Provider] - Disposition Disposition: Acute Care Hospital [facility]
--- NOTE | 2022-11-14 14:12 | PCM.HP.STD ---
HPI - General General Date of Admission: 11/14/22 Date of Service: 11/14/22 Chief Complaint: EtOH detox HPI Narrative BEBA ANGELA, is a 42 M who presented to the emergency department at [facility] on 11/14/2022 requesting detox from alcohol. Patient was recently admitted from 10/24/2022 through 10/27/2022 at which time he went through alcohol detox. Plan at that time was follow-up as an outpatient with AA. It does appear he has had 2 previous admissions this year 1 in June and then the one in October for alcohol detox. Patient is currently drinking 4-5 tall boy [place]'s daily with intermittent hard alcohol in between. Patient admits to not being sober at all after his last discharge. Vital signs on presentation show a temperature of 96.8, heart rate 110, blood pressure 147/97, respiratory rate of 16 and oxygen saturations were 96% on room air. CBC and CMP are pending on presentation. [facility] Medical History Alcoholism Anxiety Asthma Desire for detoxification HTN (hypertension) Hypokalemia Transaminitis Home Medications folic acid 1 mg tablet 1 mg PO DAILY 06/17/22 [History Last Taken Unknown] thiamine HCl (vitamin B1) 100 mg tablet 100 mg PO DAILY 06/17/22 [History Last Taken Unknown] trazodone 100 mg tablet 100 mg PO QHS 06/17/22 [History Last Taken Unknown] venlafaxine 75 mg capsule,extended release 24 hr 150 mg PO DAILY 06/17/22 [History Last Taken Unknown] clonazepam 0.5 mg tablet 0.5 mg PO BID PRN PRN Anxiety 10/24/22 [History Last Taken 10/24/22] amlodipine 10 mg tablet 10 mg PO DAILY #90 tabs 10/27/22 [Rx Last Taken Unknown] pantoprazole 40 mg tablet,delayed release 40 mg PO DAILY #30 tabs 10/27/22 [Rx Last Taken Unknown] Allergy/AdvReac Type Severity Reaction Status Date / Time azithromycin Allergy Anaphylaxis Verified 10/24/22 17:12 Family History Other Alcohol abuse Social History Smoking Status: Current every day smoker tobacco type: cigarettes and e-cigarettes alcohol intake: current alcohol intake frequency: 3 or more drinks per day substance use type: other details: Has used a synthetic marijuana, Delta, on occassion. Vital Signs Vital Signs Vital Signs: 11/14/22 12:49 Temperature 96.8 F L Temperature Source Temporal Pulse Rate 110 H Respiratory Rate 16 Blood Pressure 147/97 H Blood Pressure Mean 113 Pulse Ox 96 Oxygen Delivery Method Room Air Weight Weight: 102.058 kg Body Mass Index (BMI) 32.3 Physical Exam Const alert, oriented x3, no apparent distress and well nourished Constitutional Narrative: Middle-aged, anxious appearing, obese, white male, sitting up in bed, appears comfortable and nontoxic at this time General Appearance: cooperative HEENT normocephalic, head/scalp atraumatic and hearing grossly normal bilaterally HEENT Narrative: Mallampati 3, no thrush Resp normal respiratory effort, no retractions, no use of accessory muscles and clear to auscultation bilaterally Auscultation: Negative for rales, rhonchi or wheezes Cardio regular rate, regular rhythm, S1 normal heart sound, S2 normal heart sound, no murmurs, no rub, no gallops and no clicks GI normal to inspection, nondistended, normoactive bowel sounds, soft to palpation and non-tender Extremity no clubbing, cyanosis or edema Extremity Narrative: Pedal pulses are 2+ Neuro oriented x3, CN's II-XII intact bilaterally, moves all extremities and no focal motor deficits Neuro Narrative: No tremor at this time Speech: speech normal Psych Psych Narrative: Affect is mildly flat, eye contact is good, patient appears anxious and a bit nervous during my interview Mood & Affect: anxious Assessment & Plan Assessment/Plan (1) Alcohol addiction: (2) Admitted to alcohol detoxification center: PLAN: Plan Pending alcohol withdrawal/chronic alcohol abuse -Currently drinking 4-5 [place] with hard alcohol daily -Was 1145 on the day of admission -Patient had no periods of sobriety after last discharge -Phenobarbital taper -Thiamine and folate -Supportive medications for withdrawal symptoms -When ED consultation for recommended outpatient follow-up versus inpatient History of workaholic hepatitis -LFTs are pending but previous admission shows elevated LFTs that did trend down with treatment -Previous elevations are consistent with alcohol abuse -Follow-up CMP pending Hypertension -Continue amlodipine that was initiated at his last hospitalization Depression/anxiety -Continue home Effexor Marijuana use -Recommend cessation Tobacco abuse -Nicotine patch placement available -Recommend cessation DVT prophylaxis -Low risk -early and frequent ambulation CODE STATUS -Full code Charges/Coding Visit Charges Inpatient E&M: 67215 Init Hosp L2
[2022-11-14 14:20] VITALS: BP 147/97; PULSE 100; RESP 16; TEMP 36; O2SAT 96
[2022-11-14 14:31] LABS: Absolute Lymphocyte Count 1.37 X10^3/uL (0.83-4.51); Basophil# 0.05 X10^3/uL; Basophil% 0.8 % (0-1); Eosinophil# 0.01 X10^3/uL; Eosinophils% 0.2 % (0-5); Hematocrit 48.6 % (40-54); Lymphocyte # 1.37 X10^3/ul (0.83-4.51); Lymphocyte % 21.7 % (19-41); Mean Corpuscular Hgb 32.5 pg (27.0-32.0); Mean Corpuscular Volume 92.9 fL (80-94); Mean Platelet Vol. 9.6 fl (6.2-12.0); Monocyte# 0.87 X10^3/uL; Monocyte% 13.8 % (0-10); NRBC Flagged by Analyzer 0 % (0-5); Neutrophil # 3.99 X10^3/uL (2.7-7.7); Platelet Count 233 K/mm3 (150-450); RBC Distribution Width CV 13.9 % (11.6-14.6); RBC Distribution Width SD 47.4 fl (35.1-43.9); Red Blood Count 5.23 M/mm3 (4.6-6.2); White Blood Count 6.3 K/mm3 (4.4-11.0)
[2022-11-14 14:46] LABS: ALB/GLOB Ratio 0.7 RATIO (0.9-2.4); AST(SGOT) 151 U/L (15-37); Alanine Aminotransfer ALT/SGPT 94 U/L (16-61); Albumin, Serum 3.2 g/dL (3.2-5.0); Alkaline Phosphatase 128 U/L (45-117); Anion Gap 14 (5-15); BUN 4 mg/dL (7-18); BUN/Creat Ratio 3.8 RATIO (10-20); Calcium,Total 8.7 mg/dL (8.5-10.1); Chloride 96 mmol/L (98-107); Creatinine, Serum 1.06 mg/dL (0.70-1.30); EST Glomerular Filtration Rate 81 mL/min (>60); Est Glom Filt Rate - Afr Amer 98 mL/min (>60); Estimated Creatinine Clearance 93.74 ml/min; Globulin 4.7 g/dL (2.2-4.2); Glucose 177 mg/dL (74-106); Potassium 2.9 mmol/L (3.5-5.1); Protein, Total 7.9 g/dL (6.4-8.2); Sodium Level 135 mmol/L (136-145)
[2022-11-14 14:50] VITALS: BP 135/85; PULSE 105; RESP 18; TEMP 36.9; O2SAT 98
[2022-11-14 15:13] VITALS: BMI 32.2
[2022-11-14] MEDS: Phenobarbital 32.4 MG Tablet 64.8 MG PO ×3 (15:26→22:50)
[2022-11-14] MEDS: Acetaminophen 325 MG Tablet 650 MG PO (15:38)
[2022-11-14] MEDS: Gabapentin 300 MG Capsule PO (15:38)
[2022-11-14] MEDS: Ondansetron 8 MG Tablet PO (18:16)
[2022-11-14] MEDS: Potassium Chloride Oral Tablet 20 MEQ 60 MEQ PO (18:16)
[2022-11-14] MEDS: Lactated Ringers 1,000 ML 100 ML IV (18:16)
[2022-11-14] MEDS: hydrOXYzine PAM 25 MG Capsule 50 MG PO (20:11)
[2022-11-14 20:30] VITALS: BP 124/77; PULSE 93; RESP 16; TEMP 36.6; O2SAT 97
[2022-11-14 23:00] VITALS: BP 128/77; PULSE 90; RESP 16; TEMP 36.6; O2SAT 98
[2022-11-15 02:53] VITALS: BP 135/78; PULSE 97; RESP 16; TEMP 36.8; O2SAT 96
[2022-11-15] MEDS: Dicyclomine 10 MG Capsule 20 MG PO (03:00)
[2022-11-15] MEDS: Phenobarbital 32.4 MG Tablet 64.8 MG PO ×6 (03:00→22:44)
[2022-11-15] MEDS: Ondansetron 8 MG Tablet PO ×2 (03:00→19:41)
[2022-11-15] MEDS: LORazepam 1 MG Tablet 2 MG PO (03:00)
[2022-11-15 05:00] VITALS: BP 140/91; PULSE 92; RESP 16; TEMP 36.6; O2SAT 97
[2022-11-15 07:22] LABS: Anion Gap 8 (5-15); BUN 9 mg/dL (7-18); BUN/Creat Ratio 7.6 RATIO (10-20); Calcium,Total 9.1 mg/dL (8.5-10.1); Chloride 97 mmol/L (98-107); Creatinine, Serum 1.18 mg/dL (0.70-1.30); EST Glomerular Filtration Rate 72 mL/min (>60); Est Glom Filt Rate - Afr Amer 87 mL/min (>60); Glucose 128 mg/dL (74-106); Magnesium 1.7 mg/dL (1.6-2.6); Potassium 3.4 mmol/L (3.5-5.1); Sodium Level 134 mmol/L (136-145)
[2022-11-15] MEDS: Folic Acid 1 MG Tablet PO (08:10)
[2022-11-15] MEDS: Venlafaxine XR 75 MG Capsule 150 MG PO (08:10)
[2022-11-15] MEDS: Thiamine Hydrochloride 100 MG Tablet PO (08:10)
[2022-11-15] MEDS: amLODIPine 10 MG Tablet PO (08:10)
[2022-11-15] MEDS: Pantoprazole Sodium 40 MG Tablet PO (08:10)
[2022-11-15 08:20] VITALS: BP 128/74; PULSE 91; RESP 18; TEMP 36.8; O2SAT 98
[2022-11-15] MEDS: Potassium Chloride Oral Tablet 20 MEQ 40 MEQ PO (11:40)
[2022-11-15] MEDS: hydrOXYzine PAM 25 MG Capsule 50 MG PO (11:41)
--- NOTE | 2022-11-15 13:49 | PN.HOSP_ITS ---
Reason for Visit Reason for Visit: Alcohol detox Subjective Subjective Patient states he is feeling much better today than yesterday. No significant issues overnight. Objective Data Objective Data Vital Signs: Vital Signs Temp Pulse Resp BP Pulse Ox O2 Del Method 98.2 F 91 18 128/74 H 98 Room Air 11/15/22 08:20 11/15/22 08:20 11/15/22 08:20 11/15/22 08:20 11/15/22 08:20 11/15/22 08:20 Oxygen Delivery Method Room Air Weight: 101.9 kg Body Mass Index (BMI) 32.2 Intake & Output: Intake and Output for Last 24 Hours 11/13/22 11/14/22 11/15/22 23:59 23:59 23:59 Intake Total 1000 / 1000 Balance 1000 / 1000 Lab / Micro Data 11/14/22 14:15 11/15/22 06:13 Labs: Laboratory Results - last 24 hr 11/14/22 14:15: WBC 6.3, RBC 5.23, Hgb 17.0 H, Hct 48.6, MCV 92.9, MCH 32.5 H, MCHC 35.0, RDW Std Deviation 47.4 H, RDW Coeff of [place] 13.9, Plt Count 233, MPV 9.6, Immature Gran % (Auto) 0.500, Neut % (Auto) 63.0, Lymph % (Auto) 21.7, [place] % (Auto) 13.8 H, Eos % (Auto) 0.2, Baso % (Auto) 0.8, Absolute Neuts (auto) 4.0, Absolute Lymphs (auto) 1.37, Nucleated RBC % 0, Sodium 135 L, Potassium 2.9 L, Chloride 96 L, Carbon Dioxide 25.0, Anion Gap 14, BUN 4 L, Creatinine 1.06, Estim Creat Clear Calc 93.74, Est GFR (MDRD) Af Amer 98, Est GFR (MDRD) Non-Af 81, BUN/Creatinine Ratio 3.8 L, Glucose 177 H, Calcium 8.7, Total Bilirubin 1.30 H, AST 151 H, ALT 94 H, Alkaline Phosphatase 128 H, Total Protein 7.9, Albumin 3.2, Globulin 4.7 H, Albumin/Globulin Ratio 0.7 L 11/15/22 06:13: Sodium 134 L, Potassium 3.4 L, Chloride 97 L, Carbon Dioxide 29.0, Anion Gap 8, BUN 9, Creatinine 1.18, Estim Creat Clear Calc 84.20, Est GFR (MDRD) Af Amer 87, Est GFR (MDRD) Non-Af 72, BUN/Creatinine Ratio 7.6 L, Glucose 128 H, Calcium 9.1, Magnesium 1.7 Physical Exam Const alert, oriented x3, no apparent distress and well nourished Constitutional Narrative: Middle-aged, obese, white male, lying in bed sleeping but awakens easily, appears comfortable, nontoxic General Appearance: cooperative HEENT normocephalic, head/scalp atraumatic and hearing grossly normal bilaterally HEENT Narrative: Mallampati 3, no thrush Resp normal respiratory effort, no retractions, no use of accessory muscles and clear to auscultation bilaterally Auscultation: Negative for rales, rhonchi or wheezes Cardio regular rate, regular rhythm, S1 normal heart sound, S2 normal heart sound, no murmurs, no rub, no gallops and no clicks GI normal to inspection, nondistended, normoactive bowel sounds, soft to palpation and non-tender Extremity no clubbing, cyanosis or edema Extremity Narrative: Pedal pulses are 2+ Neuro oriented x3, moves all extremities and no focal motor deficits Neuro Narrative: No tremor Speech: speech normal Psych affect normal Psych Narrative: Less anxious, appropriately interactive and pleasant Assessment & Plan Assessment/Plan (1) Alcohol addiction: (2) Admitted to alcohol detoxification center: (3) Hypokalemia: PLAN: Plan Pending alcohol withdrawal/chronic alcohol abuse -Currently drinking 4-5 [place]'s with hard alcohol daily -Last drink was at 1145 on the day of admission -Patient had no periods of sobriety after last discharge -Phenobarbital taper -Thiamine and folate -Supportive medications for withdrawal symptoms History of workaholic hepatitis -LFTs are pending but previous admission shows elevated LFTs that did trend down with treatment -Previous elevations are consistent with alcohol abuse -CMP on presentation with alcoholic hepatitis pattern should trend down with time Hypokalemia -Replaced and reevaluated this morning -Hypokalemia is persistent but improved -40 mill equivalents today Hypertension -Continue amlodipine Depression/anxiety -Continue home Effexor Marijuana use -Recommend cessation Tobacco abuse -Nicotine patch placement available -Recommend cessation DVT prophylaxis -Low risk -early and frequent ambulation CODE STATUS -Full code Charges/Coding Visit Charges Inpatient E&M: 93894 Subs Hosp L2
[2022-11-15 15:25] VITALS: BP 146/89; PULSE 84; RESP 18; TEMP 36.6; O2SAT 98
[2022-11-15 19:30] VITALS: PULSE 100
[2022-11-15] MEDS: Acetaminophen 325 MG Tablet 650 MG PO (19:41)
[2022-11-15 21:04] VITALS: BP 112/71; PULSE 74; PULSE 76; RESP 20; TEMP 36.6; O2SAT 95; O2SAT 97
[2022-11-15] MEDS: traZODone 100 MG Tablet PO (22:44)
[2022-11-16 01:20] VITALS: BP 144/87; PULSE 98; RESP 18; TEMP 36.6; O2SAT 96
[2022-11-16 03:37] VITALS: BP 123/79; PULSE 83; RESP 18; TEMP 36.7; O2SAT 97
[2022-11-16] MEDS: LORazepam 1 MG Tablet 2 MG PO (03:46)
[2022-11-16] MEDS: Phenobarbital 32.4 MG Tablet 64.8 MG PO ×6 (03:49→22:28)
[2022-11-16 06:39] VITALS: BP 127/71; PULSE 90; RESP 18; TEMP 36.2; O2SAT 96
[2022-11-16] MEDS: amLODIPine 10 MG Tablet PO (07:46)
[2022-11-16] MEDS: Venlafaxine XR 75 MG Capsule 150 MG PO (07:46)
[2022-11-16] MEDS: Thiamine Hydrochloride 100 MG Tablet PO (07:46)
[2022-11-16] MEDS: Folic Acid 1 MG Tablet PO (07:46)
[2022-11-16] MEDS: Pantoprazole Sodium 40 MG Tablet PO (07:46)
[2022-11-16 08:15] VITALS: BP 121/95; PULSE 86; RESP 18; TEMP 36.6; O2SAT 94
--- NOTE | 2022-11-16 11:08 | ADDICTION ---
This technical proposal writer met with PT to conduct ASAM, MSE, AUDIT assessments and to plan for d/c. PT A+Ox4 and participated actively. All assessments completed and placed in PT's chart. PT plans to [facility] outpatient treatment services. PT did not indicate a need for transportation post d/c from [facility].
--- NOTE | 2022-11-16 13:42 | CHAPLAIN ---
Type of Pastoral Visit _x__ Initial Visit ___ Follow-up Visit ___ On-call Visit ___ General Patient Visit ___ Spiritual Assessment ___ Family Conference ___ Bereavement ___ Rapid Response ___ Code Blue ___ Other (describe below) Pastoral Care Referral From _x__ Patient ___ Family ___ Nurse ___ Physician ___ Social Media Assistant ___ Cemetery Manager ___ Other (describe below) Sacrament/Intervention _x__ Active listening ___ Anointing ___ Orthodox ___ Bereavement ___ Communion _x__ Miley exploration ___ ___ Life review _x__ Prayer ___ Reconciliation ___ Sacrament of Sick _x__ Supportive presence ___ Wedding ___ Other (describe below) Pastoral Comments patient admits to not feeling very well and that it is boring in a room like this; pt states that he went on a binge due to losing his job which is my choice; pt says that he has planned to meet with a local detention sergeant/counselor for support and counseling; pt has family and friends that are helpful to him per his report; pt talks about his restoration miley as being a matter of prayer to God; talked through aspects of prayer and how that can be helpful to him as well; pt would be open to another visit if not discharged before availabitity tomorrow
[2022-11-16] MEDS: Dicyclomine 10 MG Capsule 20 MG PO (14:45)
[2022-11-16 14:50] VITALS: BP 126/70; PULSE 94; RESP 18; TEMP 36.8; O2SAT 94
--- NOTE | 2022-11-16 17:39 | PCM.PN.HOSP ---
Reason for Visit Reason for Visit: Alcohol detox Subjective Subjective Feeling much better overall. Mild diarrhea. Anxiety is better. No significant tremulousness. Objective Data Objective Data Vital Signs: Vital Signs Temp Pulse Resp BP Pulse Ox O2 Del Method 98.3 F 94 18 126/70 H 94 Room Air 11/16/22 14:50 11/16/22 14:50 11/16/22 14:50 11/16/22 14:50 11/16/22 14:50 11/16/22 14:50 Oxygen Delivery Method Room Air Weight: 101.9 kg Body Mass Index (BMI) 32.2 Intake & Output: Intake and Output for Last 24 Hours 11/14/22 11/15/22 11/16/22 23:59 23:59 23:59 Intake Total 1000 / 1000 300 / 300 Balance 1000 / 1000 300 / 300 Lab / Micro Data 11/14/22 14:15 11/15/22 06:13 Physical Exam Const alert, oriented x3, no apparent distress, average body habitus, healthy appearing and well nourished Constitutional Narrative: Middle-aged, white male, lying in bed, sleeping but awakens easily, appears comfortable and nontoxic HEENT head/scalp atraumatic Head and Scalp: normocephalic Psych affect normal Psych Narrative: Interacts appropriately, pleasant Charges/Coding Visit Charges Inpatient E&M: 25991 Subs Hosp L1
[2022-11-16 22:12] VITALS: BP 118/84; PULSE 101; RESP 18; TEMP 36.7; O2SAT 98
[2022-11-16] MEDS: 0.9% Saline Lock 10 ML Syringe IV (22:27)
[2022-11-16] MEDS: traZODone 100 MG Tablet PO (22:28)
[2022-11-16] MEDS: hydrOXYzine PAM 25 MG Capsule 50 MG PO (22:28)
[2022-11-17 04:35] VITALS: BP 133/93; PULSE 96; RESP 16; TEMP 36.6; O2SAT 98
[2022-11-17] MEDS: Phenobarbital 32.4 MG Tablet 64.8 MG PO ×2 (04:41→11:49)
[2022-11-17 08:52] VITALS: BP 129/76; PULSE 61; RESP 16; TEMP 36.7; O2SAT 96
[2022-11-17] MEDS: Thiamine Hydrochloride 100 MG Tablet PO (09:04)
[2022-11-17] MEDS: amLODIPine 10 MG Tablet PO (09:04)
[2022-11-17] MEDS: Folic Acid 1 MG Tablet PO (09:04)
[2022-11-17] MEDS: Pantoprazole Sodium 40 MG Tablet PO (09:04)
[2022-11-17] MEDS: Venlafaxine XR 75 MG Capsule 150 MG PO (09:04)
--- NOTE | 2022-11-17 09:14 | ECHOD_ITS ---
Reason For Study: AFIB/FLUTTER Procedure This was a 2D Doppler, Color Flow transthoracic echocardiogram. The study was technically difficult. D/T arrhythmia. Exam performed portable in patient room. Left Ventricle Normal LV size. The estimated ejection fraction is 60 %. No evidence for diastolic dysfunction. No regional wall motion abnormalities noted. Right Ventricle Normal RV size. Normal systolic function. Atria Normal left atrium. Normal right atrium. No doppler evidence for ASD. Mitral Valve There is no mitral valve stenosis. No mitral valve insufficiency. Tricuspid Valve There is no tricuspid stenosis. Unable to estimate RV systolic pressure due to inadequate jet, pulmonary artery pressure probably normal. Aortic Valve There is no aortic stenosis. No aortic valve insufficiency. Pulmonic Valve There is no pulmonic valvular stenosis. No pulmonic valve insufficiency. Great Vessels Normal aortic root. Pericardium/Pleural No pericardial effusion. MMode/2D Measurements & Calculations LVIDd: 4.6 cm IVSd: 1.2 cm Ao root diam: 2.9 cm LVIDs: 3.4 cm LVPWd: 1.2 cm FS: 24.9 % LAV(MOD-bp): 25.8 ml LVAd ap4: 32.1 cm2 LVAd ap2: 31.8 cm2 LAV(MOD-bp) Indexed: 11.9 ml/m2 LVLd ap4: 8.6 cm LVLd ap2: 8.1 cm LAV(MOD-sp2): 29.7 ml EDV(MOD-sp4): 96.1 ml EDV(MOD-sp2): 81.1 ml LAV(MOD-sp4): 22.0 ml EDV(sp4-el): 101.4 ml EDV(sp2-el): 106.0 ml LVAs ap4: 17.4 cm2 LVAs ap2: 15.7 cm2 LVLs ap4: 6.9 cm LVLs ap2: 6.6 cm ESV(MOD-sp4): 35.0 ml ESV(MOD-sp2): 27.3 ml ESV(sp4-el): 37.3 ml ESV(sp2-el): 31.6 ml EF(MOD-sp4): 63.6 % EF(MOD-sp2): 66.3 % EF(sp4-el): 63.2 % SV(MOD-sp4): 61.1 ml SV(MOD-sp2): 53.7 ml SV(sp4-el): 64.1 ml LA dimension(2D): 3.1 cm LA A4 area: 11.1 cm2 RA A4 area: 8.1 cm2 TAPSE: 2.0 cm Doppler Measurements & Calculations MV E max miles: 71.5 cm/sec Lat Peak E' Miles: 12.1 cm/sec Med Peak E' Miles: 9.5 cm/sec E/E' lat: 5.9 E/E' med: 7.5 Ao V2 max: 133.6 cm/sec LV V1 max: 115.2 cm/sec PA V2 max: 103.3 cm/sec Ao max P.1 mmHg LV V1 max P.3 mmHg ECHO/Echo Complete Interpretation Summary The estimated ejection fraction is 60 %. No evidence for diastolic dysfunction. Ordering Physician: Paty Green Referring Physician: HALIMA PCP Performed By: Jennifer Sheth, JESSE, RVT
--- NOTE | 2022-11-17 09:14 | EKG12_ITS ---
Test Reason : AFIB Blood Pressure : / mmHG Vent. Rate : 105 BPM Atrial Rate : 159 BPM P-R Int : 144 ms QRS Dur : 084 ms QT Int : 348 ms P-R-T Axes : 000 011 018 degrees QTc Int : 459 ms Sinus tachycardia with junctional escape complexes Nonspecific T wave abnormality Abnormal ECG No previous ECGs available Confirmed by EMILIA CHERRY, BEN ([id number]), editorial cartoonist AARON RDZ ([id number]) on 11/22/2022 12:24:59 PM Referred By: Paty Green Confirmed By:BEN NIETO MD
[2022-11-17] MEDS: Aspirin E.C. 325 MG Tablet PO (10:21)
[2022-11-17 10:23] LABS: Anion Gap 11 (5-15); BUN 11 mg/dL (7-18); BUN/Creat Ratio 7.9 RATIO (10-20); Calcium,Total 9.2 mg/dL (8.5-10.1); Chloride 95 mmol/L (98-107); EST Glomerular Filtration Rate 59 mL/min (>60); Est Glom Filt Rate - Afr Amer 71 mL/min (>60); Estimated Creatinine Clearance 70.97 ml/min; Glucose 169 mg/dL (74-106); Magnesium 1.5 mg/dL (1.6-2.6); Potassium 3.2 mmol/L (3.5-5.1); Sodium Level 131 mmol/L (136-145); Thyroid Stim Hormone (TSH) 2.61 uIU/mL (0.358-3.74)
--- NOTE | 2022-11-17 11:13 | DS.PCM_ITS ---
Providers Date of Admission: 11/14/22 Date of Discharge: 11/17/22 Primary Care Physician: No Primary Care Phys Reason For Visit: etoh detox Diagnosis Discharge Diagnosis (1) Alcohol addiction: Status: Acute Code(s): F10.20 - Alcohol dependence, uncomplicated (2) Admitted to alcohol detoxification center: Status: Acute (3) Hypokalemia: Status: Acute Code(s): E87.6 - Hypokalemia (4) Arrhythmia: Status: Acute Code(s): I49.9 - Cardiac arrhythmia, unspecified (5) Hypomagnesemia: Status: Acute Code(s): E83.42 - Hypomagnesemia (6) Hyponatremia: Status: Acute Code(s): E87.1 - Hypo-osmolality and hyponatremia Medications at Discharge Home Medications folic acid 1 mg tablet 1 mg PO DAILY 06/17/22 thiamine HCl (vitamin B1) 100 mg tablet 100 mg PO DAILY 06/17/22 trazodone 100 mg tablet 100 mg PO QHS 06/17/22 venlafaxine 75 mg capsule,extended release 24 hr 150 mg PO DAILY 06/17/22 clonazepam 0.5 mg tablet 0.5 mg PO BID PRN PRN Anxiety 10/24/22 amlodipine 10 mg tablet 10 mg PO DAILY #90 tabs 10/27/22 pantoprazole 40 mg tablet,delayed release 40 mg PO DAILY #30 tabs 10/27/22 Hospital Course Operations None Procedures 2-D Echocardiogram and EKG Summary of Care Provided Minutes Spent on Discharge: 38 Hospital Course: Mr. Rose is a 42-year-old white male who presented to the emergency department hospital on 11/14/2022 requesting detox from alcohol. He had a recent admission here from 10/24/2022 through 10/27/2022 at which time he went through alcohol detox. He plan to follow-up as an outpatient with AA at that time. The patient reported he drank as soon as he left and never followed up. He has had 2 previous admissions this year for alcohol detox. 1 in June and 1 in October. On presentation he indicated he was drinking 4-5 tall boys [place]'s daily with intermittent hard alcohol in between. Vital signs on presentation demonstrated temperature of 96.8, heart rate 110, blood pressure 147/97 and a respiratory rate of 16 with an oxygen saturation of 96% on room air CBC on presentation showed mild erythrocytosis likely related to dehydration as this was present at his last admission as well and resolved. Mild hyponatremia with a sodium of 135, hypokalemia with a potassium of 2.9, normal renal function and elevated glucose. His liver enzymes were elevated consistent with alcoholic hepatitis. His overall detox was uneventful. On the a.m. of 11/17/2022 I evaluated him and noted his heart to be somewhat irregular so an EKG was obtained. He did not appear to be in atrial fibrillation as there were P waves however he did have intermittent ectopy. Electrolytes were obtained and he was found to be hypokalemic and hypomagnesemic. His TSH was normal. An echocardiogram was performed and demonstrated an ejection fraction of 60% and no evidence of diastolic dysfunction. His serum creatinine was up slightly as well too. We gave him some IV fluids as I suspect his oral intake had not been great while he was in the hospital and encouraged him to continue drinking fluids that were of nonalcohol content at home and his potassium and magnesium were replaced. We placed an event monitor on for 24 hours with his arrhythmia and I have asked him to follow-up with cardiology since he does not have a primary care physician. We will start no other medication at this time. He did meet with addiction during his hospital course and his plan is again to follow-up as an outpatient but this time with 180 and he denied any need for transportation. He was discharged home in stable condition on 11/17/2022. Discharge diagnoses: Acute alcohol withdrawal Alcohol abuse Arrhythmia Hypokalemia Hypomagnesemia Hyponatremia Alcoholic hepatitis Hyperglycemia Depression Anxiety Marijuana use-resolved Tobacco abuse Physical Exam Narrative Patient states he is feeling very well and anxious to go home. Has no complain ts. Intends to follow-up as an outpatient for a rowing for his history of alcohol abuse. Const alert, oriented x3, no apparent distress, no limitations, healthy appearing and well nourished Constitutional Narrative: Obese, middle-aged, white male, sitting up on the edge of the bed, watching television, appears comfortable, nontoxic General Appearance: cooperative, comfortable, well kempt and well developed Orientation / Consciousness: awake, oriented to person, oriented to place and oriented to time Exam Limitations: no limitations Nutritional Appearance: obese HEENT normocephalic, head/scalp atraumatic and hearing grossly normal bilaterally HEENT Narrative: Mallampati 2, no thrush Eyes PERRL, EOMs intact bilaterally and conjunctivae normal Eyes Narrative: No scleral icterus Neck no lymphadenopathy and supple Neck Narrative: Trachea midline, no thyroid enlargement Resp normal respiratory effort, no retractions, no use of accessory muscles and clear to auscultation bilaterally Auscultation: Negative for rales, rhonchi or wheezes Cardio regular rate, regular rhythm, S1 normal heart sound, S2 normal heart sound, no murmurs, no rub, no gallops and no clicks GI normal to inspection, nondistended, normoactive bowel sounds, soft to palpation and non-tender Extremity no clubbing, cyanosis or edema Extremity Narrative: Pedal pulses are 2+ Skin no rashes or lesions noted, no wounds, skin turgor normal and no jaundice Neuro oriented x3, CN's II-XII intact bilaterally, moves all extremities and no focal motor deficits Neuro Narrative: No tremor Speech: speech normal Psych affect normal Psych Narrative: Interacts appropriately, pleasant Mood & Affect: anxious Weight / BMI Weight Weight: 101.9 kg Body Mass Index (BMI) 32.2 ABG / Lab / Microbiology Data 11/14/22 14:15 11/17/22 09:47 Laboratory: Laboratory Results - last 24 hr 11/17/22 09:47: Sodium 131 L, Potassium 3.2 L, Chloride 95 L, Carbon Dioxide 25.0, Anion Gap 11, BUN 11, Creatinine 1.40 H, Estim Creat Clear Calc 70.97, Est GFR (MDRD) Af Amer 71, Est GFR (MDRD) Non-Af 59 L, BUN/Creatinine Ratio 7.9 L, Glucose 169 H, Calcium 9.2, Magnesium 1.5 L, TSH 2.61 D/C Instructions Discharge Diet: Low fat / Low cholesterol Discharge Activity: Return to Normal Activity Return to work on: 11/18/22 Meaningful Use Info Meaningful Use Diagnoses (Choose all that apply): None applicable Discharge Plan Admission Admit Date/Time: 11/14/22 14:09 Primary Reason for Your Visit: Alcohol detox Attending Provider: Paty Green Primary Care Provider: Care Physician,No Primary Instructions Additional Instructions / Restrictions: 1. Your heart rhythm was noted to be slightly abnormal during her hospital stay. Your electrolytes were off and they were replaced. This may be the etiology of your abnormal heart rhythm however I would like you to see a corporate pilot. Please call as noted below and schedule appointment. 2. Please find a primary care physician and schedule an appointment to establish. Discharge Orders/Prescriptions Prescriptions: Continued venlafaxine 75 mg Capsule,Extended Release 24hr 150 mg PO DAILY thiamine HCl (vitamin B1) 100 mg Tablet 100 mg PO DAILY trazodone 100 mg Tablet 100 mg PO QHS folic acid 1 mg Tablet 1 mg PO DAILY clonazepam 0.5 mg tablet 0.5 mg PO BID PRN PRN (Reason: Anxiety) Patient Comments: TAKE 1 TABLET BY MOUTH TWICE A DAY NEEDED amlodipine 10 mg Tablet 10 mg PO DAILY Qty: 90 0RF pantoprazole 40 mg Tablet,Delayed Release (Dr/Ec) 40 mg PO DAILY Qty: 30 0RF Other Ambulatory Orders: Cardiac Holter Monitor, 24 Hrs (Routine) Timeframe: 1 Day Facility: [facility] - Location: Cardiovascular Services Ordered By: Dr. Paty Green Referrals / Follow Up: Laila Alvares MD [Med Staff - Active Staff] - Within 2 Weeks (Call today after you are discharged or tomorrow to set up an appointment to be seen within the next 2 weeks) Care Physician,No Primary [Primary Care Provider] - Disposition Disposition (needs filled in before D/C Order can be placed): Home, Self Care Charges/Coding Visit Charges Inpatient E&M: 17390 Disch Hosp >30min
[2022-11-17] MEDS: Lactated Ringers 1,000 ML 999 ML IV (11:52)
[2022-11-17] MEDS: Potassium Chloride Oral Tablet 20 MEQ 40 MEQ PO (11:52)
[2022-11-17 14:12] VITALS: BP 128/70; PULSE 68; RESP 16; TEMP 36.8; O2SAT 100
== END 2022-11-17 14:50 | disposition home or self-care (01) | DRG 772 ==
LOC: ED 14:22 → MS3 14:39
PROVIDERS: Admitting Provider Internal Medicine; Emergency Provider Emergency Medicine; Visit Provider Internal Medicine
DX: F10.230 Alcohol dependence with withdrawal, uncomplicated (principal); E87.1 Hypo-osmolality and hyponatremia; K70.10 Alcoholic hepatitis without ascites; E83.42 Hypomagnesemia; E87.6 Hypokalemia; I10 Essential (primary) hypertension; E86.0 Dehydration; F17.210 Nicotine dependence, cigarettes, uncomplicated; F17.290 Nicotine dependence, other tobacco product, uncomplicated; F32.A Depression, unspecified; F41.9 Anxiety disorder, unspecified; R73.9 Hyperglycemia, unspecified; Z79.899 Other long term (current) drug therapy
CPT/HCPCS: 36415; 80048; 80053; 83735; 84443; 85025; 93005; 93306; 99283; J7120; A4216

== ENCOUNTER 2022-12-07 07:49 | Inpatient (IN) | payer MEDICAID, SELFPAY ==
[2022-12-07] VITALS (7 sets, daily range): BP systolic 150–188; BP diastolic 61–92; PULSE 105–114; RESP 14–18; TEMP 36.1–37.6; O2SAT 93–98; BMI 32.3; BMI 31.6
--- NOTE | 2022-12-07 07:58 | EDS_ITS ---
HPI History of Present Illness Chief Complaint: ETOH Intox Informant: patient Narrative Narrative: Patient is a 42-year-old male with history of hypertension and alcohol abuse presenting for alcohol detox. Patient is most recently through her inpatient detox 11/14-11/17. At that time he was planning on following up with 180 outpatient. Patient also went through inpatient detox 10/24 through 10/27. At that time he started drinking immediately. This most recent detox he states he started drinking 2 days afterwards. Patient notes that he is continue to drink beer. Drinks about 24 beers a day. Last drink was an hour prior to arrival and states he was drinking throughout the night. He states that he is going to do a different this time and is looking to do an IOP after detox. He has no other complaints at this time. During his last hospitalization he was noted to have PACs and was found to have hypomagnesia/hyponatremia. Patient did not follow-up with cardiology outpatient. [facility] Medical History Alcohol abuse Alcohol addiction Alcoholism Anxiety Asthma Depression Desire for detoxification HTN (hypertension) Smoker Transaminitis Home Medications folic acid 1 mg tablet 1 mg PO DAILY 06/17/22 [History Last Taken Unknown] thiamine HCl (vitamin B1) 100 mg tablet 100 mg PO DAILY 06/17/22 [History Last Taken Unknown] trazodone 100 mg tablet 100 mg PO QHS 06/17/22 [History Last Taken Unknown] venlafaxine 75 mg capsule,extended release 24 hr 150 mg PO DAILY 06/17/22 [History Last Taken Unknown] clonazepam 0.5 mg tablet 0.5 mg PO BID PRN PRN Anxiety 10/24/22 [History Last Taken 10/24/22] amlodipine 10 mg tablet 10 mg PO DAILY #90 tabs 10/27/22 [Rx Last Taken Unknown] pantoprazole 40 mg tablet,delayed release 40 mg PO DAILY #30 tabs 10/27/22 [Rx Last Taken Unknown] Allergy/AdvReac Type Severity Reaction Status Date / Time azithromycin Allergy Anaphylaxis Verified 12/07/22 07:50 Family History Other Alcohol abuse Social History Smoking Status: Current every day smoker tobacco type: cigarettes and e- cigarettes alcohol intake: current alcohol intake frequency: 3 or more drinks per day substance use type: other details: Has used a synthetic marijuana, Delta, on occassion. ROS ROS ED Constitutional Constitutional ED: Denies chills Eyes Eyes: Denies change in vision Cardiovascular Cardiovascular: Denies chest pain or palpitations Respiratory/Chest Respiratory/Chest: Denies cough Gastrointestinal Gastrointestinal: Denies nausea or vomiting Integumentary Denies rash Neurologic Neurologic: Denies headache(s) Psychiatric Psychiatric: Reports other Details: alcohol dependence ; Denies anxiety EXAM Physical Exam Const Vital Signs: 12/07/22 07:50 Temperature 98 F Temperature Source Temporal Pulse Rate 106 H Respiratory Rate 14 Blood Pressure 188/61 H Blood Pressure Mean 103 Pulse Ox 97 Oxygen Delivery Method Room Air Positive well nourished and well developed General Appearance ED: well developed and NAD HEENT Reports moist mucous membranes Neck supple and no JVD Chest Wall inspection of chest normal Resp normal respiratory effort and clear to auscultation bilaterally Cardio regular rhythm and no murmurs Rate: tachycardic GI soft to palpation and non-tender Extremity General Extremety ED: Negative for edema General Extremity: Negative for edema Neuro oriented x3 Motor Exam: Negative for general weakness Psych thought process normal Mood & Affect: anxious Skin Lesions: no lesions Rashes: no rashes MDM MDM MDM Narrative Medical decision making narrative: Patient is evaluated for request of alcohol detox. Patient is intoxicated at this time. Will obtain medical screening labs consistent with an addiction medicine admission. We will also check a magnesium and TSH due to this history of PACs and hypomagnesia him. At this time patient is overall acting appropriately do not think has findings consistent with acute alcohol withdrawal/DTs especially as he is continue to drink and I do not think he has an acute Warnicke's encephalopathy. Case is discussed with Dr. Parmar who will admit the patient. Discharge Plan Triage Chief Complaint: ETOH Intox ED Provider: Lizzie Barger Dx/Rx/DC Orders Clinical Impression: Alcohol dependence with acute alcoholic intoxication, Hypertension Prescriptions: No Action venlafaxine 75 mg Capsule,Extended Release 24hr 150 mg PO DAILY thiamine HCl (vitamin B1) 100 mg Tablet 100 mg PO DAILY trazodone 100 mg Tablet 100 mg PO QHS folic acid 1 mg Tablet 1 mg PO DAILY clonazepam 0.5 mg tablet 0.5 mg PO BID PRN PRN (Reason: Anxiety) Patient Comments: TAKE 1 TABLET BY MOUTH TWICE A DAY NEEDED amlodipine 10 mg Tablet 10 mg PO DAILY Qty: 90 0RF pantoprazole 40 mg Tablet,Delayed Release (Dr/Ec) 40 mg PO DAILY Qty: 30 0RF Primary Care Provider: Carlos Jauregui Referrals: Carlos Jauregui DO [Primary Care Provider] - Disposition Disposition: Acute Care Hospital [facility]
--- NOTE | 2022-12-07 08:08 | HP.PCM.HOS_ITS ---
[facility] - General General Date of Admission: 12/07/22 Date of Service: 12/07/22 Chief Complaint: Acute alcohol withdrawal syndrome from today morning HPI Narrative BEBA ANGELA, is a 42 M with history of chronic alcohol use disorder, about 4 admission/5 months came to ED for alcohol withdrawal symptoms including tremors anxiety restlessness. Patient drinks 24 beers every day. He denies drinking hard liquor, vodka or rum. He was admitted last time and completed treatment between November 14 to November 17. Patient denies other substance use including opioids, methamphetamine, Bath salt or Ecstasy. Patient is also a smoker, smokes cigarettes and e-cigarettes. Has used synthetic marijuana on occasion in the past. Patient also had a vomiting in ER large amount. He does not remember whether he had vomiting at home. He had GI bleed, vomiting blood about 3 years ago but never had been scoped. Denies fever or chills. Patient having anxiety attack, tremors, shakiness, could not sleep and tachycardia. Labs done in the ED, reviewed and discussed in assessment plan [facility] Medical History Alcohol abuse Alcohol addiction Alcoholism Anxiety Asthma Depression Desire for detoxification HTN (hypertension) Smoker Transaminitis Home Medications folic acid 1 mg tablet 1 mg PO DAILY Vitamin 06/17/22 [History Last Taken Unknown] trazodone 100 mg tablet 100 mg PO QHS Sleep 06/17/22 [History Last Taken Unknown] venlafaxine 75 mg capsule,extended release 24 hr 150 mg PO DAILY Depression 06/17/22 [History Last Taken Unknown] amlodipine 10 mg tablet 10 mg PO DAILY blood pressure #90 tabs 10/27/22 [Rx Last Taken Unknown] pantoprazole 40 mg tablet,delayed release 40 mg PO DAILY GERD #30 tabs 10/27/22 [Rx Last Taken Unknown] Allergy/AdvReac Type Severity Reaction Status Date / Time azithromycin Allergy Anaphylaxis Verified 12/07/22 07:50 Family History Other Alcohol abuse Social History Smoking Status: Current every day smoker tobacco type: cigarettes and e- cigarettes alcohol intake: current alcohol intake frequency: 3 or more drinks per day substance use type: other details: Has used a synthetic marijuana, Delta, on occassion. ROS ROS Narrative 14 system ROS is incomplete as patient does not remember, restless and having tremors. Constitutional: Reports fatigue and weakness. No fever. HEENT: Reports systems reviewed and no addt'l complaints, except as documented Respiratory/Chest: No acute shortness of breath or respiratory distress or wheezing. CVS: No chest pain tightness. Gastrointestinal: As described in HPI Genitourinary: Denies burning urination or new urinary tract symptoms Musculoskeletal: Denies acute joint pain or limited range of motion. No acute injury Neurologic: Denies seizure-like symptoms. No acute strokelike symptoms. skin: No ulcer. No rash Endocrinology: Reports systems reviewed and no addt'l complaints, except as documented Hematologic/Lymphatic: Reports systems reviewed and no addt'l complaints, except as documented Rest 14 ROS are negative except as mentioned in HPI Vital Signs Vital Signs Vital Signs: 12/07/22 07:50 Temperature 98 F Temperature Source Temporal Pulse Rate 106 H Respiratory Rate 14 Blood Pressure 188/61 H Blood Pressure Mean 103 Pulse Ox 97 Oxygen Delivery Method Room Air Weight Weight: 225 lb 1.471 oz Body Mass Index (BMI) 32.3 Physical Exam Narrative General: Awake, restless oriented x3, Cooperative. Face is flushed. HEENT: Atraumatic, PERRLA, EOMI, Normocephalic Oral: No Gingival or Mucosal Lesions/ Ulcerations Neck: Supple, No JVD, Negative Carotid Bruits Lungs: Air entry diminished in bilateral lung bases. No crepitation/rhonchi Cardiovascular: Regular rate, Regular Rhythm, Normal S1, Normal S2, No murmurs Abdomen: Bowel Sounds Present, Soft, Non Tender, Non-Distended : No renal angle tenderness. No suprapubic tenderness. Extremities: No edema, Capillary Refill Less than 3 Seconds Skin: No rashes, No breakdown Musculoskeletal: No Tenderness to Palpation of Joints or Extremities Neurological: Cranial nerves II-XII grossly intact, DTR 2+/4 and Symmetrical, Neuro grossly intact Psych/Mental Status: Anxious, restless. Denies hallucination, delusion or Illlusion Results Lab / Micro Data 12/07/22 08:10 12/07/22 08:10 Assessment & Plan Assessment/Plan (1) Acute hyperactive alcohol withdrawal delirium: (2) Hyponatremia: (3) Hypokalemia: PLAN: Plan This 42-year-old gentleman being admitted for acute alcohol withdrawal syndrome. 1. Acute alcohol withdrawal syndrome with delirium with history of chronic alcohol use disorder with dependence, tolerance and relapse: Patient is being admitted in MedSurg floor. Patient on phenobarbital based order set along with other adjunctive medications as needed for alcohol withdrawal symptom control. CIWA monitor. search engine marketing manager consulted. 2. Hypotonic hypovolemic hyponatremia: Patient baseline sodium hangs around 134. Admitted with sodium 121 although it was 131 on 11/17/2022. IV fluid normal saline with potassium supplement ordered. Monitor sodium every 6 hourly. 3. Hypokalemia: Potassium is getting replaced. Serum magnesium high 2.7 and phosphorus level normal. 4. Acute on chronic alcoholic hepatitis: ALT 217, AST 508, alkaline phos at 183. Total bili 4.0. Was total bili 1.3 on 11/14/2022. GGT 4580 labs are suggestive of acute and chronic alcoholic hepatitis as transaminases were elevated on 11/14/2022 but less than this time. Right upper quadrant sonogram ordered 5. Diabetes mellitus type 2: Patient glucose is high at 288. It was 169, 128 in previous labs. A1c ordered. 6. Hypertension -Continue amlodipine 7. Depression/anxiety -Continue home Effexor 8. Chronic marijuana use occasionally: Counseled quitting 9.. 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 Was counseled to quit. 10.. DVT prophylaxis -Low risk. Early ambulation encouraged. CODE STATUS: Patient does not have living will or advanced directive. No Dendrid power of locomotive driver for health. Patient has 2 children. -Full code Charges/Coding Visit Charges Inpatient E&M: 63975 Init Hosp L3 Procedures Hospitalists Procedures: 35645 Advncd Care Plan 30 Min
[2022-12-07 08:39] LABS: International Normalized Ratio 1.1; Prothrombin Time (Protime)PT. 14.6 SECONDS (11.7-14.9)
[2022-12-07 08:47] LABS: Phosphorus 3.3 mg/dL (2.5-4.9)
[2022-12-07 08:58] LABS: Absolute Lymphocyte Count 0.87 X10^3/uL (0.83-4.51); Basophil# 0.04 X10^3/uL; Basophil% 0.4 % (0-1); Hemoglobin 15.1 g/dL (13.0-16.5); Lymphocyte # 0.87 X10^3/ul (0.83-4.51); Lymphocyte % 8.4 % (19-41); Mean Corp Hgb Conc 36.8 g/dL (32-36); Mean Corpuscular Hgb 32.3 pg (27.0-32.0); Mean Corpuscular Volume 87.6 fL (80-94); Mean Platelet Vol. 10.6 fl (6.2-12.0); Monocyte# 1.29 X10^3/uL; Monocyte% 12.5 % (0-10); NRBC Flagged by Analyzer 0 % (0-5); Neutrophil # 8.02 X10^3/uL (2.7-7.7); Neutrophil % 77.4 % (47-70); POSITIVE COUNT YES; RBC Distribution Width CV 13.2 % (11.6-14.6); RBC Distribution Width SD 42.5 fl (35.1-43.9); Red Blood Count 4.68 M/mm3 (4.6-6.2); White Blood Count 10.4 K/mm3 (4.4-11.0)
[2022-12-07 09:00] LABS: Platelet Count 142 K/mm3 (150-450)
[2022-12-07 09:03] LABS: Amphetamine Urine VISTA NEGATIVE (<1000 ng/mL); Barbiturate Urine VISTA POSITIVE (< 200 ng/mL); Benzodiazepine Urine VISTA NEGATIVE (< 200 ng/mL); Cocaine Urine VISTA NEGATIVE (< 300 ng/mL); Ecstacy Urine VISTA NEGATIVE (< 500 ng/mL); Methadone Urine VISTA NEGATIVE (< 300 ng/mL); PCP Urine VISTA NEGATIVE (< 25 ng/mL); THC Urine VISTA NEGATIVE (< 50 ng/mL); Vista UDS pH Range 6
[2022-12-07 09:18] LABS: ALB/GLOB Ratio 0.7 RATIO (0.9-2.4); AST(SGOT) 508 U/L (15-37); Alanine Aminotransfer ALT/SGPT 217 U/L (16-61); Albumin, Serum 3.2 g/dL (3.2-5.0); Alkaline Phosphatase 183 U/L (45-117); Anion Gap 20 (5-15); BUN 5 mg/dL (7-18); BUN/Creat Ratio 4.7 RATIO (10-20); Calcium,Total 9.1 mg/dL (8.5-10.1); Chloride 79 mmol/L (98-107); Creatinine, Serum 1.06 mg/dL (0.70-1.30); EST Glomerular Filtration Rate 81 mL/min (>60); Est Glom Filt Rate - Afr Amer 98 mL/min (>60); Estimated Creatinine Clearance 93.74 ml/min; GGTP 4580 U/L (15-85); Globulin 4.8 g/dL (2.2-4.2); Glucose 288 mg/dL (74-106); Magnesium 2.7 mg/dL (1.6-2.6); Potassium 2.9 mmol/L (3.5-5.1); Sodium Level 121 mmol/L (136-145)
--- NOTE | 2022-12-07 10:53 | US_ITS ---
INDICATION: Acute on chronic alcoholic hepatitis, TB high EXAMINATION: Ultrasound US Abdomen RUQ (limited) TECHNIQUE: Malik scale and color doppler imaging was performed of the right upper quadrant. COMPARISON: None. FINDINGS: LIVER: 25 cm liver with hyperechoic parenchyma and blunted internal architecture. No focal hepatic lesion. There is no free fluid. GALLBLADDER AND BILIARY TREE: No shadowing gallstone, pericholecystic fluid or gallbladder wall thickening is demonstrated. The proximal common bile duct measures 6 mm, which is within normal limits for the patient''s age. Sonographic Watters''s sign: Negative. PANCREAS: No focal abnormality is demonstrated in the pancreas. No pancreatic ductal dilatation. RIGHT KIDNEY: 13.9 x 5.3 x 5.5 cm. US/Abdomen Limited IMPRESSION: Large, hyperechoic liver compatible with hepatocellular disease such as hepatitis as steatosis. Electronically Signed: Dickson Martinez MD at 20:56 EDT ,
[2022-12-07] MEDS: Phenobarbital 32.4 MG Tablet PO ×4 (11:00→22:46)
[2022-12-07] MEDS: Pantoprazole Sodium 40 MG Tablet PO (11:00)
[2022-12-07] MEDS: Mag Hydrox/Al Hydrox/Simeth 30 ML UDC PO (11:03)
[2022-12-07] MEDS: Loperamide 2 MG Capsule PO (11:04)
[2022-12-07] MEDS: Gabapentin 300 MG Capsule PO (11:04)
[2022-12-07] MEDS: Dicyclomine 10 MG Capsule 20 MG PO ×2 (11:04→20:51)
[2022-12-07] MEDS: Ondansetron 8 MG Tablet PO ×2 (11:04→20:52)
[2022-12-07] MEDS: Thiamine Hydrochloride 100 MG Tablet PO (11:05)
[2022-12-07] MEDS: Folic Acid 1 MG Tablet PO (11:05)
[2022-12-07] MEDS: 0.9% Saline Lock 10 ML Syringe IV (11:06)
--- NOTE | 2022-12-07 11:39 | ADDICTION ---
This parts data writer met with PT to conduct ASAM, MSE, AUDIT assessments and to plan for d/c. PT A+Ox4 and participated actively. All assessments completed and placed in PT's chart. PT plans to f/u with [facility] for follow-up inpatient treatment services Monday. Treatment center will provide transportation post d/c from [facility].
[2022-12-07 11:50] LABS: Bilirubin, Direct 3.02 mg/dL (0.00-0.30)
[2022-12-07] MEDS: Potassium Chloride Oral Tablet 20 MEQ 40 MEQ PO ×2 (12:28→17:54)
[2022-12-07] MEDS: LORazepam 2 MG/ML Syringe IV (12:28)
[2022-12-07] MEDS: hydrOXYzine PAM 25 MG Capsule 50 MG PO (15:01)
[2022-12-07] MEDS: LORazepam 1 MG Tablet 2 MG PO ×3 (15:01→20:51)
--- NOTE | 2022-12-07 15:44 | CASEMGMT ---
Social Work SW met with patient and introduced self and role as [facility] SW. Patient lying in bed and agreeable to speak with SW. SW assisted patient in completing SDo[facility] to discuss concerns and needs. Patient was receptive and voiced a need for food assistance due to worry his food will not last all month. Patient also voiced concerns about his utility bill, explaining his electric bill is past due. SW reviewed [employer] resource list and specifically discussed [employer] and [employer] for their utility assistance. SW also reviewed [employer] and [employer] as food resources as well as list of free meals served in the community. Patient was receptive towards information and voiced no other needs at this time. SW remains available if needs arise. Michell Peter SUPERVISOR [employer], [place]
[2022-12-07 17:13] LABS: Sodium Level 127 mmol/L (136-145)
[2022-12-07 22:38] LABS: Sodium Level 127 mmol/L (136-145)
[2022-12-08] MEDS: Phenobarbital 32.4 MG Tablet PO ×6 (01:00→21:53)
[2022-12-08 06:44] VITALS: BP 142/80; PULSE 103; RESP 16; TEMP 37; O2SAT 96
[2022-12-08] MEDS: Pantoprazole Sodium 40 MG Tablet PO (07:58)
[2022-12-08] MEDS: Mag Hydrox/Al Hydrox/Simeth 30 ML UDC PO (08:03)
[2022-12-08 09:31] LABS: ALB/GLOB Ratio 0.6 RATIO (0.9-2.4); AST(SGOT) 333 U/L (15-37); Alanine Aminotransfer ALT/SGPT 165 U/L (16-61); Albumin, Serum 2.6 g/dL (3.2-5.0); Alkaline Phosphatase 148 U/L (45-117); Anion Gap 11 (5-15); BUN 6 mg/dL (7-18); BUN/Creat Ratio 4.8 RATIO (10-20); Calcium,Total 8.6 mg/dL (8.5-10.1); Chloride 91 mmol/L (98-107); Creatinine, Serum 1.24 mg/dL (0.70-1.30); EST Glomerular Filtration Rate 68 mL/min (>60); Est Glom Filt Rate - Afr Amer 82 mL/min (>60); Estimated Creatinine Clearance 80.13 ml/min; Globulin 4.3 g/dL (2.2-4.2); Glucose 295 mg/dL (74-106); Phosphorus 1.3 mg/dL (2.5-4.9); Potassium 2.9 mmol/L (3.5-5.1); Protein, Total 6.9 g/dL (6.4-8.2); Sodium Level 128 mmol/L (136-145)
[2022-12-08 10:40] VITALS: BP 142/94; PULSE 102; RESP 16; TEMP 36.9; O2SAT 97
[2022-12-08] MEDS: Thiamine Hydrochloride 100 MG Tablet PO (10:45)
[2022-12-08] MEDS: SimETHICONE 80 MG Chewable Tablet PO ×3 (10:45→17:38)
[2022-12-08] MEDS: Potassium Chloride Oral Tablet 20 MEQ 40 MEQ PO ×3 (10:45→17:38)
--- NOTE | 2022-12-08 12:33 | PCM.PN.HOSP ---
Reason for Visit Reason for Visit: Diagnoses Hypo-osmolality and hyponatremia (12/07/22) Hypokalemia (12/07/22) Alcohol use, unspecified with withdrawal delirium (12/07/22) Subjective Subjective Follow-up for acute alcohol withdrawal syndrome and hyponatremia and hypokalemia Objective Data Objective Data Vital Signs: Vital Signs Temp Pulse Resp BP Pulse Ox O2 Del Method 98.5 F 102 H 16 142/94 H 97 Room Air 12/08/22 10:40 12/08/22 10:40 12/08/22 10:40 12/08/22 10:40 12/08/22 10:40 12/08/22 10:40 Oxygen Delivery Method Room Air Weight: 220 lb 10.923 oz Body Mass Index (BMI) 31.6 Intake & Output: Intake and Output for Last 24 Hours 12/06/22 12/07/22 12/08/22 23:59 23:59 23:59 Intake Total 1840 / 1840 Balance 1840 / 1840 Lab / Micro Data 12/07/22 08:10 12/08/22 08:39 Labs: Laboratory Results - last 24 hr 12/07/22 16:45: Sodium 127 L 12/07/22 21:59: Sodium 127 L 12/08/22 08:39: Sodium 128 L, Potassium 2.9 L, Chloride 91 L, Carbon Dioxide 26.0, Anion Gap 11, BUN 6 L, Creatinine 1.24, Estim Creat Clear Calc 80.13, Est GFR (MDRD) Af Amer 82, Est GFR (MDRD) Non-Af 68, BUN/Creatinine Ratio 4.8 L, Glucose 295 H, Calcium 8.6, Phosphorus 1.3 L, Total Bilirubin 4.80 H, AST 333 H, ALT 165 H, Alkaline Phosphatase 148 H, Total Protein 6.9, Albumin 2.6 L, Globulin 4.3 H, Albumin/Globulin Ratio 0.6 L Radiography Diagnostic Testing: Radiology Impression Abdomen Ultrasound 12/07/22 10:53 IMPRESSION: Large, hyperechoic liver compatible with hepatocellular disease such as hepatitis as steatosis. Electronically Signed: Dickson Martinez MD at 20:56 EDT , Physical Exam Narrative Patient on severe alcohol withdrawal syndrome yesterday. IV Ativan was started as per CIWA score. Patient feels slightly better. Patient has hypokalemia hyponatremia and hypophosphatemia: Physical exam General: Awake, restless oriented x3, Cooperative. Face is flushed. HEENT: Atraumatic, PERRLA, EOMI, Normocephalic Oral: No Gingival or Mucosal Lesions/ Ulcerations Neck: Supple, No JVD, Negative Carotid Bruits Lungs: Air entry diminished in bilateral lung bases. No crepitation/rhonchi Cardiovascular: Regular rate, Regular Rhythm, Normal S1, Normal S2, No murmurs Abdomen: Bowel Sounds Present, Soft, Non Tender, Non-Distended : No renal angle tenderness. No suprapubic tenderness. Extremities: No edema, Capillary Refill Less than 3 Seconds Skin: No rashes, No breakdown Musculoskeletal: Tremor is better. No Tenderness to Palpation of Joints or Extremities Neurological: Cranial nerves II-XII grossly intact, DTR 2+/4 and Symmetrical, Neuro grossly intact Psych/Mental Status: Anxious, restless. Insomnia. Denies hallucination, delusion or Illlusion Assessment & Plan Assessment/Plan (1) Acute hyperactive alcohol withdrawal delirium: (2) Hyponatremia: (3) Hypokalemia: PLAN: Plan This 42-year-old gentleman being admitted for acute alcohol withdrawal syndrome. 1. Acute alcohol withdrawal syndrome with delirium with history of chronic alcohol use disorder with dependence, tolerance and relapse: Patient is being admitted in MedSurg floor. Patient on phenobarbital based order set along with other adjunctive medications as needed for alcohol withdrawal symptom control. [facility] monitor. automated teller manager consulted. 12/08: Continue phenobarbitone as mentioned above. Patient is on's IV and p.o. Ativan as per [facility] protocol. 2. Hypotonic hypovolemic hyponatremia: Patient baseline sodium hangs around 134. Admitted with sodium 121 although it was 131 on 11/17/2022. IV fluid normal saline with potassium supplement ordered. Monitor sodium every 6 hourly. 12/08: Sodium gradual improvement to 128 today. IV fluid normal saline decreased to 50 mill per hour. 3. Hypokalemia: Potassium is getting replaced. Serum magnesium high 2.7 and phosphorus level normal. 12/08: Potassium 2.9. Phosphorus 1.3. IV potassium phosphate ordered. Recheck labs tomorrow AM. 4. Acute on chronic alcoholic hepatitis: ALT 217, AST 508, alkaline phos at 183. Total bili 4.0. Was total bili 1.3 on 11/14/2022. GGT 4580 labs are suggestive of acute and chronic alcoholic hepatitis as transaminases were elevated on 11/14/2022 but less than this time. Right upper quadrant sonogram ordered 12/08: Differential bilirubin shows mainly direct bili uremia. Increase in total bilirubin ALT and AST. Monitor liver chemistry daily. 5. Diabetes mellitus type 2: Patient glucose is high at 288. It was 169, 128 in previous labs. 12/08: Lantus 10 units started. Glucose 295. A1c ordered. 6. Hypertension -Continue amlodipine 7. Depression/anxiety -Continue home Effexor 8. Chronic marijuana use occasionally: Counseled quitting 9.. 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 Was counseled to quit. 10.. DVT prophylaxis -Low risk. Early ambulation encouraged. CODE STATUS: Patient does not have living will or advanced directive. No Dendrid power of tax associate attorney for health. Patient has 2 children. -Full code Laboratory Results 12/07/22 16:45: Sodium 127 L 12/07/22 21:59: Sodium 127 L 12/08/22 08:39: Sodium 128 L, Potassium 2.9 L, Chloride 91 L, Carbon Dioxide 26.0, Anion Gap 11, BUN 6 L, Creatinine 1.24, Estim Creat Clear Calc 80.13, Est GFR (MDRD) Af Amer 82, Est GFR (MDRD) Non-Af 68, BUN/Creatinine Ratio 4.8 L, Glucose 295 H, Calcium 8.6, Phosphorus 1.3 L, Total Bilirubin 4.80 H, AST 333 H, ALT 165 H, Alkaline Phosphatase 148 H, Total Protein 6.9, Albumin 2.6 L, Globulin 4.3 H, Albumin/Globulin Ratio 0.6 L Charges/Coding Visit Charges Inpatient E&M: 47298 Subs Hosp L2
[2022-12-08] MEDS: 0.9% Normal Saline 1,000 ML 50 ML IV (13:57)
[2022-12-08 14:00] VITALS: BP 141/94; PULSE 100; RESP 16; TEMP 37.1; O2SAT 96
[2022-12-08] MEDS: Insulin Glargine-YFGN 100 UNIT/ML Pen 10 UNIT SC (14:01)
[2022-12-08] MEDS: Dicyclomine 10 MG Capsule 20 MG PO (14:06)
[2022-12-08] MEDS: Ondansetron 8 MG Tablet PO (14:07)
[2022-12-08 14:33] LABS: Bedside Glucose 251 mg/dL (74-106)
[2022-12-08] MEDS: Metoclopramide 10 MG/2 ML Vial 5 MG IV (17:38)
[2022-12-08 17:45] VITALS: BP 135/88; PULSE 105; RESP 18; TEMP 37.1; O2SAT 97
[2022-12-08] MEDS: 0.9% Saline Lock 10 ML Syringe IV (17:46)
[2022-12-08] MEDS: traZODone 100 MG Tablet PO (21:54)
[2022-12-09] MEDS: Phenobarbital 32.4 MG Tablet PO ×6 (03:24→23:49)
[2022-12-09] MEDS: hydrOXYzine PAM 25 MG Capsule 50 MG PO ×2 (03:24→14:19)
[2022-12-09 03:38] VITALS: BP 132/94; PULSE 101; RESP 20; TEMP 37; O2SAT 97
[2022-12-09 07:00] LABS: ALB/GLOB Ratio 0.6 RATIO (0.9-2.4); AST(SGOT) 284 U/L (15-37); Alanine Aminotransfer ALT/SGPT 153 U/L (16-61); Albumin, Serum 2.3 g/dL (3.2-5.0); Alkaline Phosphatase 136 U/L (45-117); Anion Gap 9 (5-15); BUN 4 mg/dL (7-18); BUN/Creat Ratio 4.4 RATIO (10-20); Calcium,Total 8.3 mg/dL (8.5-10.1); Chloride 93 mmol/L (98-107); Creatinine, Serum 0.91 mg/dL (0.70-1.30); EST Glomerular Filtration Rate 97 mL/min (>60); Est Glom Filt Rate - Afr Amer 117 mL/min (>60); Estimated Creatinine Clearance 109.19 ml/min; Glucose 194 mg/dL (74-106); Magnesium 2.2 mg/dL (1.6-2.6); Potassium 3.1 mmol/L (3.5-5.1); Protein, Total 6.3 g/dL (6.4-8.2); Sodium Level 130 mmol/L (136-145)
[2022-12-09 07:14] LABS: Phosphorus 1.5 mg/dL (2.5-4.9)
--- NOTE | 2022-12-09 07:44 | PN.HOSP_ITS ---
Reason for Visit Reason for Visit: Diagnoses Hypo-osmolality and hyponatremia (12/07/22) Hypokalemia (12/07/22) Alcohol use, unspecified with withdrawal delirium (12/07/22) Subjective Subjective Follow-up for acute alcohol withdrawal syndrome. Patient also has abdominal distention Objective Data Objective Data Vital Signs: Vital Signs Temp Pulse Resp BP Pulse Ox O2 Del Method 98.6 F 101 H 20 H 132/94 H 97 Room Air 12/09/22 03:38 12/09/22 03:38 12/09/22 03:38 12/09/22 03:38 12/09/22 03:38 12/09/22 03:38 Oxygen Delivery Method Room Air Weight: 220 lb 10.923 oz Body Mass Index (BMI) 31.6 Intake & Output: Intake and Output for Last 24 Hours 12/07/22 12/08/22 12/09/22 23:59 23:59 23:59 Intake Total 4390.0033 / 4390.0033 Balance 4390.0033 / 4390.0033 Lab / Micro Data 12/07/22 08:10 12/09/22 05:10 Labs: Laboratory Results - last 24 hr 12/08/22 08:39: Sodium 128 L, Potassium 2.9 L, Chloride 91 L, Carbon Dioxide 26.0, Anion Gap 11, BUN 6 L, Creatinine 1.24, Estim Creat Clear Calc 80.13, Est GFR (MDRD) Af Amer 82, Est GFR (MDRD) Non-Af 68, BUN/Creatinine Ratio 4.8 L, Glucose 295 H, Calcium 8.6, Phosphorus 1.3 L, Total Bilirubin 4.80 H, AST 333 H, ALT 165 H, Alkaline Phosphatase 148 H, Total Protein 6.9, Albumin 2.6 L, Globulin 4.3 H, Albumin/Globulin Ratio 0.6 L 12/08/22 14:11: POC Glucose 251 H 12/09/22 05:10: Sodium 130 L, Potassium 3.1 L, Chloride 93 L, Carbon Dioxide 28.0, Anion Gap 9, BUN 4 L, Creatinine 0.91, Estim Creat Clear Calc 109.19, Est GFR (MDRD) Af Amer 117, Est GFR (MDRD) Non-Af 97, BUN/Creatinine Ratio 4.4 L, Glucose 194 H, Calcium 8.3 L, Phosphorus 1.5 L, Magnesium 2.2, Total Bilirubin 4.60 H, AST 284 H, ALT 153 H, Alkaline Phosphatase 136 H, Total Protein 6.3 L, Albumin 2.3 L, Globulin 4.0, Albumin/Globulin Ratio 0.6 L Physical Exam Narrative Patient on severe alcohol withdrawal syndrome yesterday. IV Ativan was started as per CIWA score. Patient feels slightly better. Patient having liquid bowel movement 3-4 times a day. Feels gas in abdomen and dyspeptic symptoms. Also has abdominal distention. Physical exam General: Awake, restless oriented x3, Cooperative. Better than yesterday. HEENT: Atraumatic, PERRLA, EOMI, Normocephalic Oral: No Gingival or Mucosal Lesions/ Ulcerations Neck: Supple, No JVD, Negative Carotid Bruits Lungs: Air entry diminished in bilateral lung bases. No crepitation/rhonchi Cardiovascular: Regular rate, Regular Rhythm, Normal S1, Normal S2, No murmurs Abdomen: Bowel Sounds Present, Soft, Non Tender, abdomen distended. Tympanic to percussion note. : No renal angle tenderness. No suprapubic tenderness. Extremities: No edema, Capillary Refill Less than 3 Seconds Skin: No rashes, No breakdown Musculoskeletal: Tremor has improved no Tenderness to Palpation of Joints or Ex tremities Neurological: Cranial nerves II-XII grossly intact, DTR 2+/4 and Symmetrical, Neuro grossly intact Psych/Mental Status: Anxious, restless. Insomnia. Denies hallucination, delusion or Illlusion Assessment & Plan Assessment/Plan (1) Acute hyperactive alcohol withdrawal delirium: (2) Hyponatremia: (3) Hypokalemia: PLAN: Plan This 42-year-old gentleman being admitted for acute alcohol withdrawal syndrome. 1. Acute alcohol withdrawal syndrome with delirium with history of chronic a lcohol use disorder with dependence, tolerance and relapse: Patient is being admitted in MedSurg floor. Patient on phenobarbital based order set along with other adjunctive medications as needed for alcohol withdrawal symptom control. [facility] monitor. talent acquisition manager consulted. 12/08: Continue phenobarbitone as mentioned above. Patient is on's IV and p.o. Ativan as per [facility] protocol. 12/09 continue treatment. 2. Severe hypotonic hypovolemic hyponatremia: Patient baseline sodium hangs around 134. Admitted with sodium 121 although it was 131 on 11/17/2022. IV fluid normal saline with potassium supplement ordered. Monitor sodium every 6 hourly. 12/08: Sodium gradual improvement to 128 today. IV fluid normal saline decreased to 50 mill per hour. 12/09: Serum sodium 130: Continue IV fluid normal saline. 3. Hypokalemia: Potassium is getting replaced. Serum magnesium high 2.7 and phosphorus level normal. 12/08: Potassium 2.9. Phosphorus 1.3. IV potassium phosphate ordered. Recheck labs tomorrow AM. 12/09: Serum potassium 3.1. Phosphorus 1.5. Continue IV potassium phosphate. Abdominal distention: Abdominal x-ray ordered to rule out ileus. Patient is moving bowel, diarrhea liquid in consistency. Bowel sounds hyperactive. Percussion not tympanic. 4. Acute on chronic alcoholic hepatitis: ALT 217, AST 508, alkaline phos at 183. Total bili 4.0. Was total bili 1.3 on 11/14/2022. GGT 4580 labs are suggestive of acute and chronic alcoholic hepatitis as transaminases were elevated on 11/14/2022 but less than this time. Right upper quadrant sonogram ordered 12/08: Differential bilirubin shows mainly direct bili uremia. Increase in total bilirubin ALT and AST. Monitor liver chemistry daily. 5. Diabetes mellitus type 2: Patient glucose is high at 288. It was 169, 128 in previous labs. 12/08: Lantus 10 units started. Glucose 295. 12/02: Hemoglobin A1c 7.2. Glucose 194. 6. Hypertension -Continue amlodipine 7. Depression/anxiety -Continue home Effexor 8. Chronic marijuana use occasionally: Counseled quitting 9.. 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 Was counseled to quit. 10.. DVT prophylaxis -Low risk. Early ambulation encouraged. CODE STATUS: Patient does not have living will or advanced directive. No Dendrid power of mergers and acquisitions attorney for health. Patient has 2 children. -Full code Laboratory Results 12/08/22 14:11: POC Glucose 251 H 12/09/22 05:10: Sodium 130 L, Potassium 3.1 L, Chloride 93 L, Carbon Dioxide 28.0, Anion Gap 9, BUN 4 L, Creatinine 0.91, Estim Creat Clear Calc 109.19, Est GFR (MDRD) Af Amer 117, Est GFR (MDRD) Non-Af 97, BUN/Creatinine Ratio 4.4 L, Glucose 194 H, Hemoglobin A1c 7.2 H, Calcium 8.3 L, Phosphorus 1.5 L, Magnesium 2.2, Total Bilirubin 4.60 H, AST 284 H, ALT 153 H, Alkaline Phosphatase 136 H, Total Protein 6.3 L, Albumin 2.3 L, Globulin 4.0, Albumin/Globulin Ratio 0.6 L 12/09/22 10:24: POC Glucose 255 H Charges/Coding Visit Charges Inpatient E&M: 04387 Subs Hosp L2
[2022-12-09 07:45] LABS: Hemoglobin A1c 7.2 % (3.8-5.6)
[2022-12-09] MEDS: Gabapentin 300 MG Capsule PO ×2 (07:51→17:23)
[2022-12-09] MEDS: Potassium Chloride Oral Tablet 20 MEQ 40 MEQ PO (07:52)
[2022-12-09] MEDS: Dicyclomine 10 MG Capsule 20 MG PO ×2 (07:52→21:35)
[2022-12-09] MEDS: Ondansetron 8 MG Tablet PO ×2 (07:52→21:35)
[2022-12-09] MEDS: Thiamine Hydrochloride 100 MG Tablet PO (07:52)
[2022-12-09] MEDS: SimETHICONE 80 MG Chewable Tablet PO ×3 (07:53→17:24)
[2022-12-09] MEDS: Pantoprazole Sodium 40 MG Tablet PO (09:20)
[2022-12-09 10:00] VITALS: BP 140/89; PULSE 100; RESP 18; TEMP 36.7; O2SAT 94
[2022-12-09] MEDS: Insulin Glargine-YFGN 100 UNIT/ML Pen 10 UNIT SC (10:25)
[2022-12-09 10:52] LABS: Bedside Glucose 255 mg/dL (74-106)
--- NOTE | 2022-12-09 13:00 | RAD_ITS ---
STUDY: X-RAY - ABDOMEN/PELVIS REASON FOR EXAM: Male, 42 years old. abdominal distension TECHNIQUE: Single AP view of the abdomen / pelvis. COMPARISON: None. FINDINGS: Normal visualized lung bases. There is an unremarkable bowel gas pattern. The visualized liver, spleen and kidneys are grossly normal in size and morphology. Normal soft tissue structures. Normal visualized osseous structures. RAD/Abd Inc Decub and/or Erect IMPRESSION: Normal x-ray examination of the abdomen and pelvis. Electronically Signed: Boone Cantu MD at 16:59 EDT ,
[2022-12-09] MEDS: KCL 20MEQ in 0.9% NS 20 MEQ/1,000 ML IV.SOLN. 75 MEQ IV (14:21)
[2022-12-09 15:21] VITALS: BP 142/92; PULSE 99; RESP 18; TEMP 37; O2SAT 96
[2022-12-09 21:27] VITALS: BP 146/92; PULSE 109; RESP 18; TEMP 36.9; O2SAT 99
[2022-12-09] MEDS: ChlorproMAZINE 25 MG Tablet PO (23:48)
[2022-12-09] MEDS: traZODone 100 MG Tablet PO (23:48)
[2022-12-10 04:00] VITALS: BP 124/92; PULSE 116; RESP 18; TEMP 37; O2SAT 95
[2022-12-10] MEDS: KCL 20MEQ in 0.9% NS 20 MEQ/1,000 ML IV.SOLN. 75 MEQ IV ×2 (05:28→15:58)
[2022-12-10] MEDS: ChlorproMAZINE 25 MG Tablet PO ×2 (05:29→23:01)
[2022-12-10] MEDS: Phenobarbital 32.4 MG Tablet PO ×4 (05:29→23:02)
[2022-12-10 07:41] LABS: Anion Gap 9 (5-15); BUN 5 mg/dL (7-18); Calcium,Total 8.9 mg/dL (8.5-10.1); Chloride 96 mmol/L (98-107); EST Glomerular Filtration Rate 87 mL/min (>60); Est Glom Filt Rate - Afr Amer 106 mL/min (>60); Estimated Creatinine Clearance 99.36 ml/min; Glucose 169 mg/dL (74-106); Magnesium 2.1 mg/dL (1.6-2.6); Potassium 3.5 mmol/L (3.5-5.1); Sodium Level 131 mmol/L (136-145)
[2022-12-10 08:00] VITALS: BP 143/91; PULSE 109; RESP 18; TEMP 37.3; O2SAT 96
[2022-12-10] MEDS: hydrOXYzine PAM 25 MG Capsule 50 MG PO ×2 (08:02→23:01)
[2022-12-10] MEDS: Senna/Docusate Sodium 1 Tablet 2 TABLET PO (08:02)
[2022-12-10] MEDS: Pantoprazole Sodium 40 MG Tablet PO (08:02)
[2022-12-10] MEDS: SimETHICONE 80 MG Chewable Tablet PO ×3 (08:02→17:39)
[2022-12-10] MEDS: Thiamine Hydrochloride 100 MG Tablet PO (08:02)
[2022-12-10] MEDS: Folic Acid 1 MG Tablet PO (08:02)
[2022-12-10] MEDS: amLODIPine 5 MG Tablet PO (10:47)
[2022-12-10] MEDS: Insulin Glargine-YFGN 100 UNIT/ML Pen 10 UNIT SC (10:47)
[2022-12-10 11:09] LABS: Bedside Glucose 182 mg/dL (74-106)
[2022-12-10] MEDS: Bisacodyl 5 MG Tablet 10 MG PO (11:29)
[2022-12-10] MEDS: Ondansetron 8 MG Tablet PO (13:40)
[2022-12-10] MEDS: Gabapentin 300 MG Capsule PO (13:40)
[2022-12-10 14:00] VITALS: BP 126/88; PULSE 105; RESP 20; TEMP 36.6; O2SAT 96
--- NOTE | 2022-12-10 15:46 | PCM.PN.HOSP ---
Reason for Visit Reason for Visit: Diagnoses Hypo-osmolality and hyponatremia (12/07/22) Hypokalemia (12/07/22) Alcohol use, unspecified with withdrawal delirium (12/07/22) Objective Data Objective Data Vital Signs: Vital Signs Temp Pulse Resp BP Pulse Ox O2 Del Method 98 F 105 H 20 H 126/88 H 96 Room Air 12/10/22 14:00 12/10/22 14:00 12/10/22 14:00 12/10/22 14:00 12/10/22 14:00 12/10/22 14:00 Oxygen Delivery Method Room Air Weight: 220 lb 10.923 oz Body Mass Index (BMI) 31.6 Intake & Output: Intake and Output for Last 24 Hours 12/08/22 12/09/22 12/10/22 23:59 23:59 23:59 Intake Total 4390.0033 / 4390.0033 1690.33 / 1690.33 1000 / 1000 Balance 4390.0033 / 4390.0033 1690.33 / 1690.33 1000 / 1000 Lab / Micro Data 12/07/22 08:10 12/10/22 06:17 Labs: Laboratory Results - last 24 hr 12/10/22 06:17: Sodium 131 L, Potassium 3.5, Chloride 96 L, Carbon Dioxide 26.0, Anion Gap 9, BUN 5 L, Creatinine 1.00, Estim Creat Clear Calc 99.36, Est GFR (MDRD) Af Amer 106, Est GFR (MDRD) Non-Af 87, BUN/Creatinine Ratio 5.0 L, Glucose 169 H, Calcium 8.9, Phosphorus 2.0 L, Magnesium 2.1 12/10/22 10:49: POC Glucose 182 H Radiography Diagnostic Testing: Radiology Impression Abdomen X-Ray 12/09/22 13:00 IMPRESSION: Normal x-ray examination of the abdomen and pelvis. Electronically Signed: Boone Cantu MD at 16:59 EDT , Physical Exam Narrative Seen and examined. Patient abdominal distention is better. Alcohol withdrawal symptoms also improving. Abdominal x-ray individually reviewed and does not show acute change. Physical exam General: Awake, quiet, oriented x3, Cooperative. Better than yesterday. HEENT: Atraumatic, PERRLA, EOMI, Normocephalic Oral: No Gingival or Mucosal Lesions/ Ulcerations Neck: Supple, No JVD, Negative Carotid Bruits Lungs: Air entry diminished in bilateral lung bases. No crepitation/rhonchi Cardiovascular: Regular rate, Regular Rhythm, Normal S1, Normal S2, No murmurs Abdomen: Bowel Sounds Present, Soft, Non Tender, abdomen distended. Tympanic to percussion note. : No renal angle tenderness. No suprapubic tenderness. Extremities: No edema, Capillary Refill Less than 3 Seconds Skin: No rashes, No breakdown Musculoskeletal: Tremor has improved no Tenderness to Palpation of Joints or Extremities Neurological: Cranial nerves II-XII grossly intact, DTR 2+/4 and Symmetrical, Neuro grossly intact Psych/Mental Status: Intermittent anxiety. Insomnia. Denies hallucination, delusion or Illlusion Assessment & Plan Assessment/Plan (1) Acute hyperactive alcohol withdrawal delirium: (2) Hyponatremia: (3) Hypokalemia: PLAN: Plan This 42-year-old gentleman being admitted for acute alcohol withdrawal syndrome. 1. Acute alcohol withdrawal syndrome with delirium with history of chronic alcohol use disorder with dependence, tolerance and relapse: Patient is being admitted in MedSur floor. Patient on phenobarbital based order set along with other adjunctive medications as needed for alcohol withdrawal symptom control. [facility] monitor. manager infrastructure consulted. 12/08: Continue phenobarbitone as mentioned above. Patient is on's IV and p.o. Ativan as per [facility] protocol. 12/09 continue treatment. 12/10: Patient is feeling improvement. Plan for inpatient alcohol rehab as patient failed multiple outpatient alcohol rehab with recurrent admission and relapse. 2. Severe hypotonic hypovolemic hyponatremia due to hypovolemia and low solute intake/beer potomania: Patient baseline sodium hangs around 134. Admitted with sodium 121 although it was 131 on 11/17/2022. IV fluid normal saline with potassium supplement ordered. Monitor sodium every 6 hourly. 12/08: Sodium gradual improvement to 128 today. IV fluid normal saline decreased to 50 mill per hour. 12/09: Serum sodium 130: Continue IV fluid normal saline. 12/10 serum sodium 131. Potassium 3.5. Continue potassium replacement. Advised adequate solute intake. Discontinue IV fluid 3. Hypokalemia: Potassium is getting replaced. Serum magnesium high 2.7 and phosphorus level normal. 12/08: Potassium 2.9. Phosphorus 1.3. IV potassium phosphate ordered. Recheck labs tomorrow AM. 12/09: Serum potassium 3.1. Phosphorus 1.5. Continue IV potassium phosphate. 12/10: Serum phosphorus 2.0. Magnesium normal. Neutra-Phos ordered. Abdominal distention: Abdominal x-ray ordered to rule out ileus. Patient is moving bowel, diarrhea liquid in consistency. Bowel sounds hyperactive. Percussion not tympanic. 12/10: Patient had bowel movement. Abdominal distention is better. Abdominal x-ray does not show acute change but normal liver and spleen shadow. 4. Acute on chronic alcoholic hepatitis: ALT 217, AST 508, alkaline phos at 183. Total bili 4.0. Was total bili 1.3 on 11/14/2022. GGT 4580 labs are suggestive of acute and chronic alcoholic hepatitis as transaminases were elevated on 11/14/2022 but less than this time. Right upper quadrant sonogram ordered 12/08: Differential bilirubin shows mainly direct bili uremia. Increase in total bilirubin ALT and AST. Monitor liver chemistry daily. 5. Diabetes mellitus type 2: Patient glucose is high at 288. It was 169, 128 in previous labs. 12/08: Lantus 10 units started. Glucose 295. 12/09: Hemoglobin A1c 7.2. Glucose 194. 12/10: Glucose 169 BMP, 182 and glucose check reasonably well controlled. 6. Hypertension -Continue amlodipine 7. Depression/anxiety -Continue home Effexor 8. Chronic marijuana use occasionally: Counseled quitting 9.. 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 Was counseled to quit. 10.. DVT prophylaxis -Low risk. Early ambulation encouraged. CODE STATUS: Patient does not have living will or advanced directive. No Dendrid power of corporate attorney for health. Patient has 2 children. -Full code Laboratory Results 12/10/22 06:17: Sodium 131 L, Potassium 3.5, Chloride 96 L, Carbon Dioxide 26.0, Anion Gap 9, BUN 5 L, Creatinine 1.00, Estim Creat Clear Calc 99.36, Est GFR (MDRD) Af Amer 106, Est GFR (MDRD) Non-Af 87, BUN/Creatinine Ratio 5.0 L, Glucose 169 H, Calcium 8.9, Phosphorus 2.0 L, Magnesium 2.1 12/10/22 10:49: POC Glucose 182 H Clinical Impression(s) from Imaging Studies Abdomen Ultrasound 12/07/22 10:53 IMPRESSION: Large, hyperechoic liver compatible with hepatocellular disease such as hepatitis as steatosis. Electronically Signed: Dickson Martinez MD at 20:56 EDT , Abdomen X-Ray 12/09/22 13:00 IMPRESSION: Normal x-ray examination of the abdomen and pelvis. Charges/Coding Visit Charges Inpatient E&M: 26294 Subs Hosp L2
[2022-12-10 22:53] VITALS: BP 139/89; PULSE 97; RESP 20; TEMP 36.8; O2SAT 96
[2022-12-10] MEDS: traZODone 100 MG Tablet PO (23:01)
[2022-12-10] MEDS: Dicyclomine 10 MG Capsule 20 MG PO (23:01)
[2022-12-11 05:07] VITALS: BP 123/84; PULSE 98; RESP 20; TEMP 37.1; O2SAT 96
[2022-12-11] MEDS: Phenobarbital 32.4 MG Tablet PO ×2 (05:14→11:34)
[2022-12-11] MEDS: Dicyclomine 10 MG Capsule 20 MG PO ×2 (05:26→17:18)
[2022-12-11] MEDS: KCL 20MEQ in 0.9% NS 20 MEQ/1,000 ML IV.SOLN. 75 MEQ IV (05:27)
[2022-12-11 06:50] LABS: Anion Gap 8 (5-15); BUN 4 mg/dL (7-18); BUN/Creat Ratio 4.7 RATIO (10-20); Calcium,Total 8.6 mg/dL (8.5-10.1); Chloride 100 mmol/L (98-107); Creatinine, Serum 0.85 mg/dL (0.70-1.30); EST Glomerular Filtration Rate 105 mL/min (>60); Est Glom Filt Rate - Afr Amer 127 mL/min (>60); Glucose 140 mg/dL (74-106); Magnesium 1.9 mg/dL (1.6-2.6); Phosphorus 1.9 mg/dL (2.5-4.9); Potassium 3.8 mmol/L (3.5-5.1); Sodium Level 133 mmol/L (136-145)
[2022-12-11] MEDS: Pantoprazole Sodium 40 MG Tablet PO ×2 (06:57→21:16)
[2022-12-11] MEDS: SimETHICONE 80 MG Chewable Tablet PO ×3 (07:38→17:15)
[2022-12-11] MEDS: amLODIPine 5 MG Tablet PO (07:38)
[2022-12-11] MEDS: Folic Acid 1 MG Tablet PO (07:38)
[2022-12-11] MEDS: Thiamine Hydrochloride 100 MG Tablet PO (07:38)
[2022-12-11] MEDS: Senna/Docusate Sodium 1 Tablet 2 TABLET PO ×2 (07:41→21:16)
[2022-12-11 08:00] VITALS: BP 121/82; PULSE 98; RESP 18; TEMP 37.1; O2SAT 96
[2022-12-11] MEDS: Insulin Glargine-YFGN 100 UNIT/ML Pen 10 UNIT SC (09:55)
[2022-12-11 10:18] LABS: Bedside Glucose 212 mg/dL (74-106)
--- NOTE | 2022-12-11 11:33 | PN.HOSP_ITS ---
Reason for Visit Reason for Visit: Diagnoses Hypo-osmolality and hyponatremia (12/07/22) Hypokalemia (12/07/22) Alcohol use, unspecified with withdrawal delirium (12/07/22) Objective Data Objective Data Vital Signs: Vital Signs Temp Pulse Resp BP Pulse Ox O2 Del Method 98.7 F 98 18 121/82 H 96 Room Air 12/11/22 08:00 12/11/22 08:00 12/11/22 08:00 12/11/22 08:00 12/11/22 08:00 12/11/22 08:00 Oxygen Delivery Method Room Air Weight: 220 lb 10.923 oz Body Mass Index (BMI) 31.6 Intake & Output: Intake and Output for Last 24 Hours 12/09/22 12/10/22 12/11/22 23:59 23:59 23:59 Intake Total 1690.33 / 1690.33 2087.5 / 2087.5 1300 / 1300 Balance 1690.33 / 1690.33 2087.5 / 2087.5 1300 / 1300 Lab / Micro Data 12/07/22 08:10 12/11/22 05:38 Labs: Laboratory Results - last 24 hr 12/11/22 05:38: Sodium 133 L, Potassium 3.8, Chloride 100, Carbon Dioxide 25.0, Anion Gap 8, BUN 4 L, Creatinine 0.85, Estim Creat Clear Calc 116.90, Est GFR (MDRD) Af Amer 127, Est GFR (MDRD) Non-Af 105, BUN/Creatinine Ratio 4.7 L, Glucose 140 H, Calcium 8.6, Phosphorus 1.9 L, Magnesium 1.9 12/11/22 09:54: POC Glucose 212 H Physical Exam Narrative Seen and examined. Patient abdominal distention has improved. Patient moving bowels and passing flatus. Alcohol withdrawal symptoms has improved. Abdominal x-ray individually reviewed and does not show acute change. Physical exam General: Awake, quiet, oriented x3, Cooperative. Better than yesterday. HEENT: Atraumatic, PERRLA, EOMI, Normocephalic Oral: No Gingival or Mucosal Lesions/ Ulcerations Neck: Supple, No JVD, Negative Carotid Bruits Lungs: Air entry diminished in bilateral lung bases. No crepitation/rhonchi Cardiovascular: Regular rate, Regular Rhythm, Normal S1, Normal S2, No murmurs Abdomen: Bowel Sounds Present, Soft, Non Tender, abdomen distended. Tympanic to percussion note. : No renal angle tenderness. No suprapubic tenderness. Extremities: No edema, Capillary Refill Less than 3 Seconds Skin: No rashes, No breakdown Musculoskeletal: Tremor has improved no Tenderness to Palpation of Joints or Extremities Neurological: Cranial nerves II-XII grossly intact, DTR 2+/4 and Symmetrical, Neuro grossly intact Psych/Mental Status: Intermittent anxiety. Insomnia. Denies hallucination, delusion or Illlusion Assessment & Plan Assessment/Plan (1) Acute hyperactive alcohol withdrawal delirium: (2) Hyponatremia: (3) Hypokalemia: PLAN: Plan This 42-year-old gentleman being admitted for acute alcohol withdrawal syndrome. 1. Acute alcohol withdrawal syndrome with delirium with history of chronic alcohol use disorder with dependence, tolerance and relapse: Patient is being admitted in MedSurg floor. Patient on phenobarbital based order set along with other adjunctive medications as needed for alcohol withdrawal symptom control. [facility] monitor. food stand manager consulted. 12/08: Continue phenobarbitone as mentioned above. Patient is on's IV and p.o. Ativan as per [facility] protocol. 12/09 continue treatment. 12/10: Patient is feeling improvement. Plan for inpatient alcohol rehab as patient failed multiple outpatient alcohol rehab with recurrent admission and relapse. 12/11: Patient is feeling improved. Waiting for inpatient rehab outside probably happened on Monday 2. Severe hypotonic hypovolemic hyponatremia due to hypovolemia and low solute intake/beer potomania: Patient baseline sodium hangs around 134. Admitted with sodium 121 although it was 131 on 11/17/2022. IV fluid normal saline with potassium supplement ordered. Monitor sodium every 6 hourly. 12/08: Sodium gradual improvement to 128 today. IV fluid normal saline decreased to 50 mill per hour. 12/09: Serum sodium 130: Continue IV fluid normal saline. 12/10 serum sodium 131. Potassium 3.5. Continue potassium replacement. Advised adequate solute intake. Discontinue IV fluid 12/11: Serum sodium rising appropriately. 133. Hypophosphatemia, phosphorus 1.9. Potassium normal. IV potassium phosphate ordered. 3. Hypokalemia: Potassium is getting replaced. Serum magnesium high 2.7 and phosphorus level normal. 12/08: Potassium 2.9. Phosphorus 1.3. IV potassium phosphate ordered. Recheck labs tomorrow AM. 12/09: Serum potassium 3.1. Phosphorus 1.5. Continue IV potassium phosphate. 12/10: Serum phosphorus 2.0. Magnesium normal. Neutra-Phos ordered. Abdominal distention most likely due to constipation/fecal matter: Abdominal x- ray ordered to rule out ileus. Patient is moving bowel, diarrhea liquid in consistency. Bowel sounds hyperactive. Percussion not tympanic. 12/10: Patient had bowel movement. Abdominal distention is better. Abdominal x- ray does not show acute change but normal liver and spleen shadow. 11/24: Patient had large bowel movement. Voiding urine well. Abdominal distention is improved. 4. Acute on chronic alcoholic hepatitis: ALT 217, AST 508, alkaline phos at 183. Total bili 4.0. Was total bili 1.3 on 11/14/2022. GGT 4580 labs are suggestive of acute and chronic alcoholic hepatitis as transaminases were elevated on 11/14/2022 but less than this time. Right upper quadrant sonogram ordered 12/08: Differential bilirubin shows mainly direct bili uremia. Increase in total bilirubin ALT and AST. Monitor liver chemistry daily. 5. Diabetes mellitus type 2: Patient glucose is high at 288. It was 169, 128 in previous labs. 12/08: Lantus 10 units started. Glucose 295. 12/09: Hemoglobin A1c 7.2. Glucose 194. 12/10: Glucose 169 BMP, 182 and glucose check reasonably well controlled. 6. Hypertension -Continue amlodipine 7. Depression/anxiety -Continue home Effexor 8. Chronic marijuana use occasionally: Counseled quitting 9.. 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 Was counseled to quit. 10.. DVT prophylaxis -Low risk. Early ambulation encouraged. CODE STATUS: Patient does not have living will or advanced directive. No [place] power of trust and estates attorney for health. Patient has 2 children. -Full code Clinical Impression(s) from Imaging Studies Abdomen Ultrasound 12/07/22 10:53 IMPRESSION: Large, hyperechoic liver compatible with hepatocellular disease such as hepatitis as steatosis. Electronically Signed: Dickson Martinez MD at 20:56 EDT , Abdomen X-Ray 12/09/22 13:00 IMPRESSION: Normal x-ray examination of the abdomen and pelvis. Charges/Coding Visit Charges Inpatient E&M: 55789 Subs Hosp L2
[2022-12-11 14:00] VITALS: BP 120/77; PULSE 105; RESP 18; TEMP 37.1; O2SAT 95
[2022-12-11 20:00] VITALS: BP 127/86; PULSE 94; RESP 16; TEMP 36.9; O2SAT 98
[2022-12-11] MEDS: traZODone 100 MG Tablet PO (21:16)
[2022-12-12] MEDS: hydrOXYzine PAM 25 MG Capsule 50 MG PO ×2 (01:56→09:06)
[2022-12-12 02:02] VITALS: BP 123/77; PULSE 90; RESP 18; TEMP 36.9; O2SAT 98
--- NOTE | 2022-12-12 07:51 | PCM.PN.HOSP ---
Reason for Visit Reason for Visit: Diagnoses Hypo-osmolality and hyponatremia (12/07/22) Hypokalemia (12/07/22) Alcohol use, unspecified with withdrawal delirium (12/07/22) Subjective Subjective Feels better. Objective Data Objective Data Vital Signs: Vital Signs Temp Pulse Resp BP Pulse Ox O2 Del Method 36.9 C 90 18 123/77 H 98 Room Air 12/12/22 02:02 12/12/22 02:02 12/12/22 02:02 12/12/22 02:02 12/12/22 02:02 12/12/22 02:02 Oxygen Delivery Method Room Air Weight: 100.1 kg Body Mass Index (BMI) 31.6 Intake & Output: Intake and Output for Last 24 Hours 12/10/22 12/11/22 12/12/22 23:59 23:59 23:59 Intake Total 2087.5 / 2087.5 2182.5 / 2182.5 Balance 2087.5 / 2087.5 2182.5 / 2182.5 Lab / Micro Data 12/07/22 08:10 12/11/22 05:38 Labs: Laboratory Results - last 24 hr 12/11/22 09:54: POC Glucose 212 H 12/12/22 05:48: Phosphorus 3.0, Magnesium 2.0 Physical Exam Const alert and no apparent distress HEENT head/scalp atraumatic Assessment & Plan Assessment/Plan (1) Acute hyperactive alcohol withdrawal delirium: PLAN: Acute alcohol withdrawal syndrome with delirium with history of chronic alcohol use disorder with dependence, tolerance and relapse: Patient is being admitted in MedSur floor. Patient on phenobarbital based order set along with other adjunctive medications as needed for alcohol withdrawal symptom control. [facility] monitor. trailer park manager consulted. Completed phenobarbital. Awaiting on alcohol rehab. (2) Hyponatremia: PLAN: Improved w IVF. (3) Hypokalemia: PLAN: Improved with replacement. (4) Transaminitis: PLAN: acute on chronic 2/2 alcohol trending down outpt follow up strongly advised complete alcohol cessation and continued use could progress to cirrrhosis. PLAN: Plan Chronic conditions: Diabetes mellitus type 2: Patient glucose is high at 288. It was 169, 128 in previous labs. 12/08: Lantus 10 units started. Glucose 295. 12/09: Hemoglobin A1c 7.2. Glucose 194.7/29: Glucose 169 BMP, 182 and glucose check reasonably well controlled. Hypertension -Continue amlodipine Depression/anxiety -Continue home Effexor Chronic marijuana use occasionally: Counseled quitting Chronic cigarette to smoking an e-cigarette smoking dependence: On nicotine patch. Was counseled to quit. DVT prophylaxis -Low risk. Early ambulation encouraged. CODE STATUS: Full code
[2022-12-12] MEDS: Folic Acid 1 MG Tablet PO (08:52)
[2022-12-12] MEDS: SimETHICONE 80 MG Chewable Tablet PO ×2 (08:52→13:47)
[2022-12-12] MEDS: Thiamine Hydrochloride 100 MG Tablet PO (08:52)
[2022-12-12] MEDS: Insulin Glargine-YFGN 100 UNIT/ML Pen 10 UNIT SC (09:02)
[2022-12-12] MEDS: amLODIPine 5 MG Tablet PO (09:03)
[2022-12-12] MEDS: Pantoprazole Sodium 40 MG Tablet PO (09:03)
[2022-12-12 10:00] VITALS: BP 121/81; PULSE 95; RESP 18; TEMP 36.9; O2SAT 97
[2022-12-12 10:12] LABS: Bedside Glucose 194 mg/dL (74-106)
--- NOTE | 2022-12-12 10:53 | DCINST_ITS ---
Discharge Instructions Diet Discharge Diet: 2000 Calorie Control Diet Follow Up Care Test Results: Test results from this visit will be discussed in further detail at your follow- up appointment, if applicable. Discharge Plan Admission Admit Date/Time: 12/07/22 08:01 Primary Reason for Your Visit: alcohol withdrawal. Attending Provider: Wilberto Cardenas Primary Care Provider: Carlos Jauregui Consulting Providers: Joaquim Parmar Instructions Additional Instructions / Restrictions: You have diabetes. I recommend that you take metformin twice daily and check your blood sugar daily and keep a record to present to your primary care doctor. Discharge Orders/Prescriptions Prescriptions: New amlodipine 5 mg Tablet 5 mg PO DAILY Qty: 30 0RF multivitamin Tablet 1 tab PO DAILY Qty: 30 0RF metformin 500 mg tablet 500 mg PO BID Qty: 60 0RF Continued pantoprazole 40 mg Tablet,Delayed Release (Dr/Ec) 40 mg PO DAILY Qty: 30 0RF venlafaxine 75 mg Capsule,Extended Release 24hr 150 mg PO DAILY Qty: 30 0RF trazodone 100 mg Tablet 100 mg PO QHS Qty: 30 0RF Discontinued folic acid 1 mg Tablet 1 mg PO DAILY amlodipine 10 mg Tablet 10 mg PO DAILY Qty: 90 0RF Other Ambulatory Orders: Glucometer (Routine) Timeframe: 1 Day Location: Determined by Patient Ordered By: Dr. Wilberto Cardenas Referrals / Follow Up: Carlos Jauregui DO [Primary Care Provider] - Within 2 Weeks Disposition Disposition (needs filled in before D/C Order can be placed): Home, Self Care
--- NOTE | 2022-12-12 11:07 | DS.PCM_ITS ---
Providers Date of Admission: 12/07/22 Primary Care Physician: Dr. Carlos Jauregui DO Reason For Visit: ALCOHOL WITHDRAWAL Diagnosis Discharge Diagnosis (1) Acute hyperactive alcohol withdrawal delirium: Status: Acute Code(s): F10.931 - Alcohol use, unspecified with withdrawal delirium Plan: Acute alcohol withdrawal syndrome with delirium with history of chronic alcohol use disorder with dependence, tolerance and relapse: Patient is being admitted in MedSur floor. Patient on phenobarbital based order set along with other adjunctive medications as needed for alcohol withdrawal symptom control. [facility] monitor. manager proposal consulted. Completed phenobarbital. Awaiting on alcohol rehab. (2) Hyponatremia: Status: Acute Code(s): E87.1 - Hypo-osmolality and hyponatremia Plan: Improved w IVF. (3) Hypokalemia: Status: Acute Code(s): E87.6 - Hypokalemia Plan: Improved with replacement. (4) Transaminitis: Status: Acute Code(s): R74.01 - Elevation of levels of liver transaminase levels Plan: acute on chronic 2/2 alcohol trending down outpt follow up strongly advised complete alcohol cessation and continued use could progress to cirrrhosis. Plan Chronic conditions: * Diabetes mellitus type 2: Patient glucose is high at 288. It was 169, 128 in previous labs. 12/08: Lantus 10 units started. Glucose 295. 12/09: Hemoglobin A1c 7.2. Glucose 194.12/10: Glucose 169 BMP, 182 and glucose check reasonably well controlled. Will discharge with metformin 500 BID and instructed pt to check his blood sugar daily. * Hypertension -Continue amlodipine * Depression/anxiety -Continue home Effexor * Chronic marijuana use occasionally: Counseled quitting * Chronic cigarette to smoking an e-cigarette smoking dependence: On nicotine patch. Was counseled to quit. DVT prophylaxis -Low risk. Early ambulation encouraged. CODE STATUS: Full code Medications at Discharge Home Medications pantoprazole 40 mg tablet,delayed release 40 mg PO DAILY GERD #30 tabs 10/27/22 amlodipine 5 mg tablet 5 mg PO DAILY #30 tabs 12/12/22 metformin 500 mg tablet 500 mg PO BID #60 tabs 12/12/22 multivitamin 1 tab PO DAILY #30 tabs 12/12/22 trazodone 100 mg tablet 100 mg PO QHS Sleep #30 tabs 12/12/22 venlafaxine 75 mg capsule,extended release 24 hr 150 mg (2 x 75 mg) PO DAILY Depression #30 caps 12/12/22 Hospital Course Operations None Procedures None Summary of Care Provided Minutes Spent on Discharge: 35 Weight / BMI Weight Weight: 100.1 kg Body Mass Index (BMI) 31.6 ABG / Lab / Microbiology Data 12/07/22 08:10 12/11/22 05:38 Laboratory: Laboratory Results - last 24 hr 12/12/22 05:48: Phosphorus 3.0, Magnesium 2.0 12/12/22 08:49: POC Glucose 194 H D/C Instructions Discharge Diet: 2000 Calorie Control Diet Meaningful Use Info Meaningful Use Diagnoses (Choose all that apply): None applicable Discharge Plan Admission Admit Date/Time: 12/07/22 08:01 Primary Reason for Your Visit: alcohol withdrawal. Attending Provider: Wilberto Cardenas Primary Care Provider: Carlos Jauregui Consulting Providers: Joaquim Parmar Instructions Additional Instructions / Restrictions: You have diabetes. I recommend that you take metformin twice daily and check your blood sugar daily and keep a record to present to your primary care doctor. Discharge Orders/Prescriptions Prescriptions: New amlodipine 5 mg Tablet 5 mg PO DAILY Qty: 30 0RF multivitamin Tablet 1 tab PO DAILY Qty: 30 0RF metformin 500 mg tablet 500 mg PO BID Qty: 60 0RF Continued pantoprazole 40 mg Tablet,Delayed Release (Dr/Ec) 40 mg PO DAILY Qty: 30 0RF venlafaxine 75 mg Capsule,Extended Release 24hr 150 mg PO DAILY Qty: 30 0RF trazodone 100 mg Tablet 100 mg PO QHS Qty: 30 0RF Discontinued folic acid 1 mg Tablet 1 mg PO DAILY amlodipine 10 mg Tablet 10 mg PO DAILY Qty: 90 0RF Other Ambulatory Orders: Glucometer (Routine) Timeframe: 1 Day Location: Determined by Patient Ordered By: Dr. Wilberto Cardenas Referrals / Follow Up: Carlos Jauregui DO [Primary Care Provider] - Within 2 Weeks Disposition Disposition (needs filled in before D/C Order can be placed): Home, Self Care Charges/Coding Visit Charges Inpatient E&M: 92641 Disch Hosp >30min
--- NOTE | 2022-12-12 11:18 | ADDICTION ---
Pt will be discharging to home. Treatment facility did not have any beds. We created a relapse prevention plan and pt is confident that he will be ok until a bed opens up at the facility. The facility expects to admit him sometime this week.
--- NOTE | 2022-12-12 11:33 | PHA.DC.MC.R ---
Pharmacy [facility] has performed discharge medication reconciliation and counseling for this patient. 1. METFORMIN 500MG PO BID 2. MULTIVITAMIN 1T PO DAILY The patient's discharge medication list was reviewed for discrepancies and discrepancies were resolved. The patient was counseled on the following discharge medications and changes in medications for homegoing were reviewed. The Reason for Use, instructions for use, and potential side effects were reviewed for all new medications. The patient's questions regarding all of their medications were answered. The patient was able to verbally demonstrate an understanding of their discharge medications. Patient counseled by pharmacy technician inpatientAllen. Medications at Discharge Home Medications pantoprazole 40 mg tablet,delayed release 40 mg PO DAILY GERD #30 tabs 10/27/22 amlodipine 5 mg tablet 5 mg PO DAILY #30 tabs 12/12/22 metformin 500 mg tablet 500 mg PO BID #60 tabs 12/12/22 multivitamin 1 tab PO DAILY #30 tabs 12/12/22 trazodone 100 mg tablet 100 mg PO QHS Sleep #30 tabs 12/12/22 venlafaxine 75 mg capsule,extended release 24 hr 150 mg (2 x 75 mg) PO DAILY Depression #30 caps 12/12/22
--- NOTE | 2022-12-12 15:03 | CASEMGMT ---
GABRIELLA RAMIREZ NOTE: Informed that pt's Rx's that have been e-scribed to [facility] retail pharmacy cost is $114. [facility] is showing as the only insurance coverage for pt. Call to Addy in the pharmacy. He states when he runs the medication, it is being processed through [employer] Plan as being active. He attempted to run medications through [employer], but it shows to submit it through other processor. GABRIELLA RAMIREZ to room. Pt states he was told on 10/20/22 when he was terminated that he no longer has insurance coverage and states he did not sign up for COBRA at that time. As far as he knows, he only has MONI. Call back to Addy. Meds re-processed through [facility] Discount plan and total cost is now $65.83. GABRIELLA RAMIREZ informed pt. He states if he'd be allowed to use his phone, he could call someone re: paying for this. Acacia, recruiter specialist, made aware. She is currently working on trying to find transportation for pt to [facility] and depending on when pt is leaving, it would depend on if pt can be given permission to use his phone to call someone to pay for his Rx's . Call placed to Registration who checked on MMO insurance that pt had previously this year. It is showing that pt is ineligible since 10/18/22. Roshan JACOBS RN, CM
== END 2022-12-12 16:43 | disposition home or self-care (01) | DRG 772 ==
LOC: ED 08:09 → MS3 08:22
PROVIDERS: Admitting Provider Internal Medicine; Emergency Provider Emergency Medicine; PCP Student in an Organized Health Care Education/Training Program
DX: F10.231 Alcohol dependence with withdrawal delirium (principal); E83.39 Other disorders of phosphorus metabolism; E11.65 Type 2 diabetes mellitus with hyperglycemia; E87.1 Hypo-osmolality and hyponatremia; I10 Essential (primary) hypertension; E87.6 Hypokalemia; E86.1 Hypovolemia; J45.909 Unspecified asthma, uncomplicated; F17.210 Nicotine dependence, cigarettes, uncomplicated; F12.90 Cannabis use, unspecified, uncomplicated; F32.A Depression, unspecified; F41.9 Anxiety disorder, unspecified; Z79.899 Other long term (current) drug therapy
CPT/HCPCS: 36415; 74019; 76705; 80048; 80053; 80307; 82077; 82248; 82962; 82977; 83036; 83735; 84100; 84295; 85025; 85610; 99284; 99406; J7030; J7040; J7050; A4216